=== PATIENT | male | born 1975 | race Caucasian/White ===

== ENCOUNTER 2020-07-25 10:42 | Emergency (ER) | payer OTHER ==
[~2020-07-25] VITALS: Ht 175 cm; Wt 120.0 kg
[2020-07-25] MEDS ORDERED: cloNIDine 0.1 MG (CATAPRES) TAB PO ONE (11:00)
--- NOTE | 2020-07-25 11:10 | ED Cardiac General ---
History of Present Illness General Chief Complaint: Cardiac/General Problems Stated Complaint: HIGH BP Source: patient Exam Limitations: no limitations (LYNDSEY SHELBY) History of Present Illness Date Seen by Provider: Jul 25, 2020 Time Seen by Provider: 10:56 Initial Comments Pt here from [facility] office for high blood pressure. He states he was having some floaters in is eye last night and this morning prompting his visit to the eye doctor. He states the opthalmologist told him there was a bleeding vessel in his left eye and his BP was 205 systolic. He states he has a history of HTN and is prescribed Lisinopril, but he has not taken it for about a month until this morning he took a dose suspecting his eye problem was from the high blood pressure. He reports some eye strain and headache from trying to follow the floater around in his vision. He denies any double vision, blurry vision, chest pain, SOA, abdominal issues, dizziness, numbness or tingling. Timing/Duration: 24 hours Severity: moderate Location: other (Left eye floater) Activities at Onset: none Associated Systoms: No Chest Pain, No Cough, No Fever/Chills, No Nausea/Vomiting, No Shortness of Air, No Syncope, No Weakness (LYNDSEY SHELBY) Allergies and Home Medications Allergies Coded Allergies: No Known Drug Allergies (Unverified , 07/25/20) Patient Home Medication List Home Medication List Reviewed: Yes (KAE BAKER MD) Review of Systems Review of Systems Constitutional: No chills, No fever EENTM: No Blurred Vision, No Double Vision; Eye Pain (Strain); No Nose Congestion, No Throat Pain Respiratory: Denies Cough, Denies Shortness of Air Cardiovascular: Denies Chest Pain, Denies Irregular Heart Rate, Denies Palpitations, Denies Syncope Gastrointestinal: Denies Abdominal Pain, Denies Constipated, Denies Diarrhea, Denies Nausea, Denies Vomiting Genitourinary: Denies Burning, Denies Hematuria Musculoskeletal: No back pain, No muscle weakness Psychiatric/Neurological: Headache; Denies Numbness, Denies Tingling, Denies Weakness (LYNDSEY SHELBY) Respiratory: Denies Cough, Denies SOA at Rest Cardiovascular: Denies Chest Pain, Denies Edema Gastrointestinal: Denies Nausea, Denies Vomiting (KAE BAKER MD) All Other Systems Reviewed Negative Unless Noted: Yes (KAE BAKER MD) Past Ccmmpwn-[id number]-Vivdrw Hx Past Med/Social Hx: Reviewed Nursing Past Med/Soc Hx (KAE BAKER MD) Patient Social History Alcohol Use: Occasionally Uses Recent Hopitalizations: No (LYNDSEY SHELBY) Seasonal Allergies Seasonal Allergies: No (LYNDSEY SHELBY) Past Medical History Surgeries: Yes Appendectomy Respiratory: No Cardiac: Yes Hypertension Neurological: No Genitourinary: No Gastrointestinal: No Musculoskeletal: No Endocrine: No HEENT: No Cancer: No Psychosocial: No Integumentary: No Blood Disorders: No (LYNDSEY SHELBY) Family Medical History Reviewed Nursing Family Hx (KAE BAKER MD) Physical Exam Vital Signs Vital Signs - First Documented 07/25/20 11:00 Temp 37.0 Pulse 90 Resp 18 B/P (MAP) 191/128 (149) Pulse Ox 98 O2 Delivery Room Air (KAE BAKER MD) Vital Signs Capillary Refill : (LYNDSEY SHELBY) Height, Weight, BMI Height: '" Weight: lbs. oz. kg; BMI Method: General Appearance: No Apparent Distress, WD/WN HEENT: PERRL/EOMI (Equal but chemically dilated), TMs Normal, Normal ENT Inspection Neck: Full Range of Motion, Normal Inspection, Supple Respiratory: Chest Non Tender, Lungs Clear, Normal Breath Sounds Cardiovascular: Regular Rate, Rhythm, No Edema, Normal Peripheral Pulses Gastrointestinal: Non Tender, Soft Extremity: Normal Capillary Refill, Normal Inspection, Normal Range of Motion, Non Tender, No Calf Tenderness, No Pedal Edema Neurologic/Psychiatric: Alert, Oriented x3, No Motor/Sensory Deficits, Normal Mood/Affect Skin: Normal Color, Warm/Dry (LYNDSEY SHELBY) General Appearance: No Apparent Distress, WD/WN HEENT: PERRL/EOMI (Equal but chemically dilated), Pharynx Normal Respiratory: Lungs Clear, Normal Breath Sounds Cardiovascular: Regular Rate, Rhythm, No Murmur, Normal Peripheral Pulses Extremity: Normal Range of Motion, Non Tender Neurologic/Psychiatric: Alert, Oriented x3 Skin: Normal Color, Warm/Dry (KAE BAKER MD) Progress/Results/Core Measures Results/Orders Lab Results Laboratory Tests Test 07/25/20 11:05 Range/Units White Blood Count 6.3 4.3-11.0 10^3/uL Red Blood Count 5.74 4.35-5.85 10^6/uL Hemoglobin 15.6 13.3-17.7 G/DL Hematocrit 48 40-54 % Mean Corpuscular Volume 83 80-99 FL Mean Corpuscular Hemoglobin 27 25-34 PG Mean Corpuscular Hemoglobin Concent 33 32-36 G/DL Red Cell Distribution Width 14.1 10.0-14.5 % Platelet Count 242 130-400 10^3/uL Mean Platelet Volume 10.7 H 7.4-10.4 FL Immature Granulocyte % (Auto) 0 % Neutrophils (%) (Auto) 69 42-75 % Lymphocytes (%) (Auto) 21 12-44 % Monocytes (%) (Auto) 7 0-12 % Eosinophils (%) (Auto) 2 0-10 % Basophils (%) (Auto) 1 0-10 % Neutrophils # (Auto) 4.3 1.8-7.8 X 10^3 Lymphocytes # (Auto) 1.3 1.0-4.0 X 10^3 Monocytes # (Auto) 0.5 0.0-1.0 X 10^3 Eosinophils # (Auto) 0.1 0.0-0.3 10^3/uL Basophils # (Auto) 0.1 0.0-0.1 10^3/uL Immature Granulocyte # (Auto) 0.0 0.0-0.1 10^3/uL Sodium Level 138 135-145 MMOL/L Potassium Level 3.6 3.6-5.0 MMOL/L Chloride Level 103 98-107 MMOL/L Carbon Dioxide Level 25 21-32 MMOL/L Anion Gap 10 5-14 MMOL/L Blood Urea Nitrogen 14 7-18 MG/DL Creatinine 1.64 H 0.60-1.30 MG/DL Estimat Glomerular Filtration Rate 46 BUN/Creatinine Ratio 9 Glucose Level 93 70-105 MG/DL Calcium Level 9.3 8.5-10.1 MG/DL Corrected Calcium 8.5-10.1 MG/DL Total Bilirubin 0.6 0.1-1.0 MG/DL Aspartate Amino Transf (AST/SGOT) 20 5-34 U/L Alanine Aminotransferase (ALT/SGPT) 18 0-55 U/L Alkaline Phosphatase 64 40-136 U/L Total Protein 8.0 6.4-8.2 GM/DL Albumin 4.6 H 3.2-4.5 GM/DL (KAE BAKER MD) My Orders Orders - KAE BAKER MD Clonidine Tablet (Catapres Tablet) (07/25/20 11:00) Cbc With Automated Diff (07/25/20 10:58) Comprehensive Metabolic Panel (07/25/20 10:58) Ekg Tracing (07/25/20 10:58) Hydralazine Injection (Apresoline Inject (07/25/20 11:30) Ed Iv/Invasive Line Start (07/25/20 11:29) Metoprolol Succinate (Xl) Tab (Toprol Xl (07/25/20 11:45) Amlodipine Tablet (Norvasc Tablet) (07/25/20 11:45) (KAE BAKER MD) Medications Given in ED Current Medications Medications Dose Ordered Sig/Rowena Route Start Time Stop Time Status Last Admin Dose Admin Amlodipine Besylate 10 mg ONCE ONCE PO 07/25/20 11:45 07/25/20 11:46 DC 07/25/20 11:40 10 MG Clonidine HCl 0.1 mg ONCE ONCE PO 07/25/20 11:00 07/25/20 11:01 DC 07/25/20 10:58 0.1 MG Hydralazine HCl 10 mg ONCE ONCE IV 07/25/20 11:30 07/25/20 11:31 DC 07/25/20 11:33 10 MG (KAE BAKER MD) Vital Signs/I&O 07/25/20 11:00 Temp 37.0 Pulse 90 Resp 18 B/P (MAP) 191/128 (149) Pulse Ox 98 O2 Delivery Room Air (KAE BAKER MD) Progress Progress Note : Progress Note 1100: Pt comfortabl in room blood pressure 215/130 decreased to 191/128 on second check, ordered Clonidine .1 mg PO, CBC, CMP, ECG, will monitor and reassess BP 1125: BP still elevateed at 195/122, will order Hydralazine 10mg IV, (LYNDSEY SHELBY) Progress Note : Progress Note I have seen and evaluated the patient and agree with above except as indicated. I have directed the plan of care. Patient is here with uncontrolled hyperte nsion with history of hypertension. He has been off of his meds for quite some time. Noticed blurry spot in vision and thought that it was likely his blood pressure. He did take one of his like lisinopril tablets this morning and went to the eye doctor. He was found to have a small hemorrhage in the left eye and was instructed to come here due to blood pressure concerns. Denies chest pain, breathing problems, difficulty with urination, balance problems or weakness or other concerns. Evaluation as above. Plan basic labs, EKG and clonidine 0.1 mg p.o. We did go ahead and establish IV and give hydralazine 10 mg IV. 1130: I did discuss the case with Dr. Purcell and he agrees with the plan/far but recommends Toprol-XL 100 mg p.o. and amlodipine 10 mg p.o. when he can see the patient tomorrow in clinic. This was discussed with the patient who agrees. We are pending labs currently and will monitor blood pressure improvement. 1230: Blood pressure currently 143/87 with heart rate of 70. Overall feeling fine but does have a mild headache. He will follow up with Dr. Purcell and discharge instructions discussed. Discharged home with return precautions. Patient verbalized understanding instructions and agreement with plan. (KAE BAKER MD) Initial ECG Impression Date: Jul 25, 2020 Initial ECG Impression Time: 11:10 Initial ECG Rate: 75 Initial ECG Rhythm: Normal Sinus Initial ECG Comparisson: No Previous ECG Available Comment Sinus rhythm with LVH with secondary repolarization abnormality. Normal but leftward axis deviation. No evidence of ST elevation [place]. Interpreted by me. (KAE BAKER MD) Departure Impression Primary Impression: Uncontrolled hypertension Disposition: 01 HOME, SELF-CARE Condition: Stable Departure-Patient Inst. Decision time for Depature: 12:23 (KAE BAKER MD) Referrals: KAYCEE SHEIKH MD FACP FACC [facility]S LETTY JENKINS MD (PCP/Family) Primary Care Physician Patient Instructions: Malignant Hypertension (DC) Add. Discharge Instructions: All discharge instructions reviewed with patient and/or family. Voiced understanding. It is very important that you take your medications for your blood pressure to reduce chance of injury or further disease. Follow-up with Dr. Purcell for recheck and further evaluation. Call his office today for appointment tomorrow. Return for chest pain, breathing problems, weakness, vision or balance problems, nausea, vomiting or other concerns as needed. Scripts Metoprolol Succinate (Metoprolol Succinate) 100 Mg Tab.er.24h 100 MG PO DAILY for 30 Days, #30 TAB Prov: KAE BAKER MD 07/25/20 Amlodipine Besylate (Amlodipine Besylate) 10 Mg Tablet 10 MG PO DAILY for 30 Days, #30 TAB 0 Refills Prov: KAE BAKER MD 07/25/20 Copy Copies To 1: KAYCEE SHEIKH MD FACP FACC CCDS LYNDSEY SHELBY Jul 25, 2020 11:10 KAE BAKER MD Jul 25, 2020 11:53
[2020-07-25] MEDS ORDERED: hydrALAZINE (APESOLINE) 20 MG/ML VIAL IV ONE (11:30)
[2020-07-25 11:37] LABS: BASOPHILS % (AUTO) 1 % (0-10); EOSINOPHILS % (AUTO) 2 % (0-10); HEMATOCRIT 48 % (40-54); HEMOGLOBIN 15.6 G/DL (13.3-17.7); LYMPHOCYTES # (AUTO) 1.3 X 10^3 (1.0-4.0); LYMPHOCYTES % (AUTO) 21 % (12-44); MEAN CORPUSCULAR HEMOGLOBIN 27 PG (25-34); MEAN CORPUSCULAR HGB CONC 33 G/DL (32-36); MEAN CORPUSCULAR VOLUME 83 FL (80-99); MEAN PLATELET VOLUME 10.7 FL (7.4-10.4); MONOCYTES # (AUTO) 0.5 X 10^3 (0.0-1.0); MONOCYTES % (AUTO) 7 % (0-12); NEUTROPHILS # (AUTO) 4.3 X 10^3 (1.8-7.8); NEUTROPHILS % (AUTO) 69 % (42-75); PLATELET COUNT 242 10^3/uL (130-400); WHITE BLOOD COUNT 6.3 10^3/uL (4.3-11.0)
[2020-07-25 11:38] LABS: BASOPHILS # (AUTO) 0.1 10^3/uL (0.0-0.1); EOSINOPHILS # (AUTO) 0.1 10^3/uL (0.0-0.3)
[2020-07-25] MEDS ORDERED: meTOproloL SUCCINATE 50 MG (TOPROL XL) TAB PO SCH (11:45)
[2020-07-25] MEDS ORDERED: amLODIPine 10 MG (NORVASC) TAB PO ONE (11:45)
[2020-07-25 11:50] LABS: ALANINE AMINOTRANSFERASE 18 U/L (0-55); ALBUMIN 4.6 GM/DL (3.2-4.5); ALKALINE PHOSPHATASE 64 U/L (40-136); BILIRUBIN,TOTAL 0.6 MG/DL (0.1-1.0); BUN/CREATININE RATIO 9; CALCIUM 9.3 MG/DL (8.5-10.1); CARBON DIOXIDE 25 MMOL/L (21-32); CHLORIDE 103 MMOL/L (98-107); CREATININE SERUM 1.64 MG/DL (0.60-1.30); GFR ESTIMATED 46; GLUCOSE 93 MG/DL (70-105); POTASSIUM 3.6 MMOL/L (3.6-5.0); SODIUM 138 MMOL/L (135-145)
[2020-07-25] MEDS ORDERED: MTP100TCR PO (12:27)
[2020-07-25] MEDS ORDERED: AMLO-251 PO (12:27)
[2020-07-25 12:39] VITALS: BP 143/87
== END 2020-07-25 12:38 | disposition home or self-care (01) ==
LOC: EDUNIT# 10:42 → ER FS 10:45
DX: I10 Essential (primary) hypertension (principal)
CPT/HCPCS: 36415; 80053; 85025; 93005

== ENCOUNTER → 2021-07-27 | Outpatient (CLI) | payer OTHER ==
[~2021-07-27] MED LIST: AMLO-251 PO; MTP100TCR PO
== END ==
LOC: LAB FS 11:15
PROVIDERS: ATTEND Emergency Medicine
DX: U07.1 COVID-19 (principal)
CPT/HCPCS: 87636

== ENCOUNTER 2022-07-01 06:32 | Observation (INO) | payer OTHER ==
[~2022-07-01] VITALS: Ht 175.2 cm; Wt 113.6 kg
[2022-07-01] MEDS ORDERED: hydrALAZINE (APESOLINE) 20 MG/ML VIAL IV STA (06:50)
[2022-07-01] MEDS ORDERED: RT-ALBUTEROL/IPRATROPIUM 3 ML (DUONEB) VIAL INH STA (06:50)
--- NOTE | 2022-07-01 06:50 | ED Dyspnea ---
General Stated Complaint: SOB,COUGHING UP BLOOD Source of Information: Patient Exam Limitations: No Limitations (LEANNA PICKARD MD) History of Present Illness Date Seen by Provider: Jul 01, 2022 Time Seen by Provider: 06:38 Initial Comments 46-year-old male with history of high blood pressure and obesity presents with complaints of waking up 2 hours ago with shortness of breath. He was and coughed up some dark red sputum. He has continued to cough since then and felt that there was still some blood present with coughing. He denies having fever or feeling sick until he woke up this morning. He takes lisinopril and metoprolol for his blood pressure but then also has as needed clonidine to take for elevated blood pressure. He has had some nasal drainage but said that it was all clear. He feels short of breath and was concerned about the blood in his sputum. He does have a history of tobacco use but states that he recently quit smoking again. He does have a mild headache with the coughing and high blood pressure. He states he took his blood pressure medicine before leaving home. He felt well when he went to bed last night but again woke up at approximately 4:30 in the morning with his symptoms today. Timing/Duration: 1-3 Hours Severity: Moderate Activities at Onset: Sleeping Prior Episodes/Possible Cause: No Prior Episodes Modifying Factors: Worse With Coughing (Sees some pink-tinged sputum when he coughs) Associated Symptoms: Anxiety, Cough (LEANNA PICKARD MD) Allergies and Home Medications Allergies Coded Allergies: No Known Drug Allergies (Unverified , 07/25/20) Patient Home Medication List Home Medication List Reviewed: Yes (LEANNA PICKARD MD) Amlodipine Besylate (Amlodipine Besylate) 10 Mg Tablet, 10 MG PO DAILY Prescribed by: KAE BAKER on 07/25/20 1227 Metoprolol Succinate (Metoprolol Succinate) 100 Mg Tab.er.24h, 100 MG PO DAILY Prescribed by: KAE BAKER on 07/25/20 1227 Review of Systems Review of Systems Constitutional: No chills, No fever EENTM: nose congestion; No epistaxis Respiratory: cough, hemoptysis, short of breath Cardiovascular: No chest pain Gastrointestinal: No nausea, No vomiting Genitourinary: no symptoms reported Musculoskeletal: no symptoms reported Skin: no symptoms reported Psychiatric/Neurological: Headache Endocrine: No Symptoms Reported Hematologic/Lymphatic: Denies Blood Clots (LEANNA PICKARD MD) Past Nwurmdk-Zoznmd-Lwzbqc Hx Patient Social History Tobacco Use?: Yes Tobacco type used: Cigarettes Smoking Status: Former Smoker (quit 2 weeks ago) (LEANNA PICKARD MD) Seasonal Allergies Seasonal Allergies: No (LEANNA PICKARD MD) Past Medical History Surgery/Hospitalization HX: Hypertension, Non-compliance Surgeries: Yes Appendectomy Respiratory: No Cardiac: Yes Hypertension Neurological: No Genitourinary: No Gastrointestinal: No Musculoskeletal: No Endocrine: No HEENT: No Cancer: No Psychosocial: No Integumentary: No Blood Disorders: No (LEANNA PICKARD MD) Physical Exam Vital Signs Vital Signs - First Documented 07/01/22 06:32 Temp 36.5 Pulse 86 Resp 22 B/P (MAP) 238/134 (168) Pulse Ox 92 O2 Delivery Room Air (KASI JOSEPH MD) Vital Signs Capillary Refill : (LEANNA PICKARD MD) Height, Weight, BMI Height: '" Weight: lbs. oz. kg; 39.00 BMI Method: General Appearance: Anxious HEENT: PERRL/EOMI, Moist Mucous Membranes; No Photophobia; Other (TM clear bilaterally but he does have bilateral effusion. There is no erythema or dul lness. 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 II-XII Norm as Tested Skin: Normal Color, Warm/Dry (LEANNA PICKARD MD) Progress/Results/Core Measures Results/Orders Lab Results Laboratory Tests Test 07/01/22 06:40 07/01/22 06:45 Range/Units White Blood Count 8.5 4.3-11.0 10^3/uL Red Blood Count 6.13 H 4.30-5.52 10^6/uL Hemoglobin 17.6 13.3-17.7 g/dL Hematocrit 51 40-54 % Mean Corpuscular Volume 83 80-99 fL Mean Corpuscular Hemoglobin 29 25-34 pg Mean Corpuscular Hemoglobin Concent 35 32-36 g/dL Red Cell Distribution Width 13.8 10.0-14.5 % Platelet Count 228 130-400 10^3/uL Mean Platelet Volume 11.0 9.0-12.2 fL Immature Granulocyte % (Auto) 1 % Neutrophils (%) (Auto) 60 42-75 % Lymphocytes (%) (Auto) 24 12-44 % Monocytes (%) (Auto) 7 0-12 % Eosinophils (%) (Auto) 6 0-10 % Basophils (%) (Auto) 1 0-10 % Neutrophils # (Auto) 5.1 1.8-7.8 10^3/uL Lymphocytes # (Auto) 2.1 1.0-4.0 10^3/uL Monocytes # (Auto) 0.6 0.0-1.0 10^3/uL Eosinophils # (Auto) 0.5 H 0.0-0.3 10^3/uL Basophils # (Auto) 0.1 0.0-0.1 10^3/uL Immature Granulocyte # (Auto) 0.0 0.0-0.1 10^3/uL Prothrombin Time 12.7 12.2-14.7 SEC INR Comment 0.9 0.8-1.4 Activated Partial Thromboplast Time 30 24-35 SEC D-Dimer 0.56 H 0.00-0.49 UG/ML Sodium Level 139 135-145 MMOL/L Potassium Level 4.2 3.6-5.0 MMOL/L Chloride Level 104 98-107 MMOL/L Carbon Dioxide Level 23 21-32 MMOL/L Anion Gap 12 5-14 MMOL/L Blood Urea Nitrogen 22 H 7-18 MG/DL Creatinine 1.83 H 0.60-1.30 MG/DL Estimat Glomerular Filtration Rate 46 BUN/Creatinine Ratio 12 Glucose Level 116 H 70-105 MG/DL Calcium Level 9.2 8.5-10.1 MG/DL Corrected Calcium 9.0 8.5-10.1 MG/DL Magnesium Level 2.0 1.6-2.4 MG/DL Total Bilirubin 1.0 0.1-1.0 MG/DL Aspartate Amino Transf (AST/SGOT) 22 5-34 U/L Alanine Aminotransferase (ALT/SGPT) 21 0-55 U/L Alkaline Phosphatase 57 40-136 U/L Troponin I < 0.30 <0.30 NG/ML C-Reactive Protein 0.39 <0.50 MG/DL Pro-B-Type Natriuretic Peptide 1301.0 H <125.0 PG/ML Total Protein 7.6 6.4-8.2 GM/DL Albumin 4.2 3.2-4.5 GM/DL Influenza Type A (RT-PCR) Not Detected Not Detecte Influenza Type B (RT-PCR) Not Detected Not Detecte SARS-CoV-2 RNA (RT-PCR) Not Detected Not Detecte (KASI JOSEPH MD) My Orders Orders - KASI JOSEPH MD Crp Fs (07/01/22 07:54) Furosemide Injection (Lasix Injection) (07/01/22 08:00) Potassium Chloride (Tablet) (Klor Con Ta (07/01/22 08:00) Ns Iv 500 Ml (Sodium Chloride 0.9%) (07/01/22 08:00) Ct Angio Chest W (07/01/22 07:55) Iohexol Injection (Omnipaque 350 Mg/Ml 1 (07/01/22 08:00) Received Contrast (Hold Metformin- Contr (07/01/22 08:00) Sodium Chloride Flush (Catheter Flush Sy (07/01/22 08:00) Ns (Ivpb) (Sodium Chloride 0.9% Ivpb Bag (07/01/22 08:00) Hydralazine Injection (Apresoline Inject (07/01/22 09:15) Amlodipine Tablet (Norvasc Tablet) (07/01/22 09:30) Metoprolol Succinate (Xl) Tab (Toprol Xl (07/01/22 09:26) Oxycodone Immediate Rel Tablet (Oxyir Ta (07/01/22 10:00) Fentanyl Inj (Sublimaze Injection) (07/01/22 10:30) (KASI JOSEPH MD) Medications Given in ED Current Medications Medications Dose Ordered Sig/Rowena Route Start Time Stop Time Status Last Admin Dose Admin Amlodipine Besylate 10 mg ONCE ONCE PO 07/01/22 09:30 07/01/22 09:31 DC 07/01/22 09:42 10 MG Fentanyl Citrate 50 mcg ONCE ONCE IVP 07/01/22 10:30 07/01/22 10:31 DC 07/01/22 10:28 50 MCG Furosemide 20 mg ONCE ONCE IVP 07/01/22 08:00 07/01/22 08:01 DC 07/01/22 08:05 20 MG Hydralazine HCl 10 mg ONCE ONCE IV 07/01/22 09:15 07/01/22 09:27 DC 07/01/22 09:15 10 MG Iohexol 100 ml ONCE ONCE IV 07/01/22 08:00 07/01/22 08:10 DC 07/01/22 08:20 100 ML Potassium Chloride 20 meq ONCE ONCE PO 07/01/22 08:00 07/01/22 08:01 DC 07/01/22 08:07 20 MEQ Sodium Chloride 10 ml NEEDED PRN IV 07/01/22 08:00 07/01/22 08:20 10 ML Sodium Chloride 100 ml ONCE ONCE IV 07/01/22 08:00 07/01/22 08:10 DC 07/01/22 08:20 100 ML Sodium Chloride 500 ml @ 0 mls/hr Q0M ONCE IV 07/01/22 08:00 07/01/22 08:01 DC 07/01/22 08:34 0 MLS/HR (KASI JOSEPH MD) Vital Signs/I&O 07/01/22 07/01/22 06:32 09:45 Temp 36.5 36.5 Pulse 86 76 Resp 22 18 B/P (MAP) 238/134 (168) 161/119 Pulse Ox 92 96 O2 Delivery Room Air Room Air (KASI JOSEPH MD) Admisison Planning May Need Admission (Planning): 06:45 (LEANNA PICKARD MD) Progress Progress Note #1: Progress Note Potential life-threatening conditions of pulmonary embolism, pneumonia, COVID, sepsis, influenza, pulmonary mass, arterial hemorrhage in his lungs. Evaluate with electrocardiogram to evaluate for arrhythmia or ischemia, chest x- ray to look for infection, effusion, mass, cardiomegaly, CBC, chemistry, coags, cardiac enzymes, swab for COVID, swab for influenza, D-dimer to screen for pulmonary embolism, sputum culture to see the blood in his expectorated sputum. Ordered DuoNeb breathing treatment nebulized to help with his shortness of breath and his oxygen saturation of 91 to 92% on room air. Ordered hydralazine 10 mg IV for his hypertension. His initial blood pressure was 237/139. As he appears to have an upper respiratory infection with some drainage and fluid behind his ears that could be contributing to the cough. With him coughing hard and having recently quit smoking the last few weeks he could also have infection or pulmonary mass or blood clot. With his highly elevated blood pressure that could also contribute to his coughing up some blood. Since his blood pressure is so elevated it would make it easier for him to have some bleeding from his increased pressure on the small blood vessels. He denies taking any blood thinners or aspirin. He is inconsistent with taking his blood pressure medicine. He does report taking his blood pressure medicine this morning approximately 1 hour prior to arrival. He denies having a history of COPD but does have a longstanding history of smoking. If his blood pressure is not improving with hydralazine he might require additional doses or labetalol or other treatment to help lower his pressures. He might benefit from steroid such as solumedrol 125 mg IV since he has a history of smoking and only quit 2 weeks ago. He [facility] had a [facility] [place] for a conference so this increases his chance for having Covid, Influenza, Pulmonary embolism, pneumonia. Will pass care to Dr. Joseph at shift change pending results and seeing how he responds to treatment in the ED to determine his disposition. He certainly may require admit to the hospital for his uncontrolled hypert ension, hemoptysis, cough, headache, shortness of breath with O2 sat 90-92% on room air. Progress Note #2: Time: 07:24 Progress Note On my personal interpretation and review of his electrocardiogram shows normal sinus rhythm with LVH changes. This appears similar to July 25, 2020. His cardiac telemetry monitoring is showing a sinus rhythm with heart rate in the 80s with out ectopy or ST elevation. On my personal interpretation and review of his 1 view chest x-ray he has poor inspiratory effort with possible infiltrate in the right lower lobe. He appears to have a widened mediastinum. However this may just be secondary to his poor inspiratory effort and body habitus. Also looks like he has a higher density area behind his heart that could be hiatal hernia. After the hydralazine is blood pressure was still 221/137. After the DuoNeb breathing treatment he was slightly less short of breath but his oxygen saturation on room air still was 90 to 92%. (LEANNA PICKARD MD) Progress Note #1: Time: 07:49 Progress Note Care of this patient was assumed from Dr. Pickard at shift change. Patient feels a little improved after nebulizer treatment but still feels short of breath. He has short shallow respirations and less instructed to take a deep breath. He does have some subtle crackles bilaterally throughout the lungs. Chest x-ray was viewed by me and report reviewed. There is evidence of infiltrate, cardiome karly, and vascular congestion. BNP correlates with the vascular congestion from probable heart failure. I will add a CRP to help discern if there is an infectious etiology. Chemistry was reviewed and revealed a worsening of his renal insufficiency. Along with Lasix we will also give a 500 mL normal saline bolus for renal protection as he is receiving a CT angiogram to further evaluate his chest pain and hemoptysis. D-dimer was slightly elevated. Patient denies any chest pain except with cough. No leukocytosis was noted on the CBC. Patient is afebrile at this time. Progress Note #2: Time: 09:[address] angiogram did not reveal any pulmonary embolus. There was groundglass opacity suggestive of pulmonary edema. There was mention of possible alveolar hemorrhage, but I believe this is unlikely since there is no pathology or diagnosis that should cause hemorrhage. No hemoptysis has been witnessed here and he has not complained of any hemoptysis since presenting to the ER. Vital signs are improved with last systolic blood pressure of 178. This is a satisfactory reduction from his presenting blood pressure. Case was discussed with Dr. Myers who is agreeable to admission to the cardiac stepdown unit. Dr. Calvin was consulted. He recommended adding amlodipine 10 mg now and daily and Toprol-XL 100 mg now and daily. Patient had prompt diuresis with Lasix 20 mg by IV route. This was followed by normal saline 500 mL IV bolus for renal prophylaxis after his CT angiogram. Patient will be transferred by EMS to [facility]. Patient was placed on oxygen at 2 L/min for comfort. Oxygen saturations prior to nasal cannula were running 92 to 95%. Progress Note #3: Time: 10:44 Progress Note Upon further review of literature, it seems that in some rare instances alveolar hemorrhage has been noted with hypertensive emergency. I have discussed the situation with the eICU provider. Since the patient is no longer short of breath and has had no hemoptysis in the emergency room, admission to the ICU is not felt necessary. Blood pressure is controlled with systolic pressure of 181 on my evaluation prior to departure in route to [place]. This represents a 20 to 25% drop from initial which is appropriate for initial treatment. Patient did receive the amlodipine and Toprol-XL as requested by Dr. Calvin. Patient was noted to diurese nearly 2 L prior to discharge and transfer. (KASI JOSEPH MD) Initial ECG Impression Date: Jul 01, 2022 Initial ECG Impression Time: 06:45 Initial ECG Rate: 81 Initial ECG Rhythm: Normal Sinus Initial ECG Comparisson: Unchanged Comment On my personal review and interpretation of his electrocardiogram shows sinus rhythm with a heart rate of 81 bpm. KS interval 162 ms. He has LVH changes. QT interval 369 ms with a QTc interval 406 ms. This is similar to prior tracing from July 25, 2020 (LEANNA PICKARD MD) Diagnostic Imaging Diagonstic Imaging: Xray Plain Films/CT/US/NM/MRI: chest (LEANNA PICKARD MD) Comments Chest x-ray viewed by me. There appears to be infiltrate in the right lung base and cardiomegaly with probable vascular congestion by my interpretation. Radiologist interpretation also reviewed as noted in report below. NAME: [facility] REC#: [id number] PT STATUS: REG ER : 1975 PHYSICIAN: LEANNA PICKARD MD ADMIT DATE: 07/01/22/ER FS Draft Date of Exam:07/01/22 CHEST 1 VIEW AP/PA ONLY INDICATION: Cough, hemoptysis. Covid precautions. EXAMINATION: Chest 07/01/2022. FINDINGS: Heart is prominent with mild pulmonary vascular congestion noted. There are suspected bibasilar infiltrates. No significant effusions. No pneumothorax. IMPRESSION: 1. Pulmonary vascular congestion. 2. Suspected bibasilar infiltrates. Dictated on workstation # [id number] Dict: 07/01/22 0739 Trans: 07/01/22 0744 [id number] Interpreted by: JESSICA CARRION MD Diagonstic Imaging: CT Plain Films/CT/US/NM/MRI: chest Comments CT angiogram chest reviewed by me and report reviewed as below. See report: NAME: B[facility] MACK [facility] REC#: [id number] PT STATUS: REG ER : 1975 PHYSICIAN: KASI JOSEPH MD ADMIT DATE: 07/01/22/ER FS Draft Date of Exam:07/01/22 CT ANGIO CHEST W EXAMINATION: CT angiography of the chest. TECHNIQUE: Contrast enhanced thin section helical images were obtained through the chest with intravenous contrast timed for the optimal opacification of the arterial structures per CTA protocol. Post-processing, reconstructions and interpretation of angiographic images of the vessels was performed. 3D MIP reconstructions were performed and reviewed. All CT scans use one or more of the following dose optimizing techniques: automated exposure control, MA and/or KvP adjustment based on a patient size and exam type, or iterative reconstruction. HISTORY: Elevated D-dimer and hemoptysis. COMPARISON: None available. FINDINGS: There is no pulmonary embolism. There is centrilobular groundglass and nodularity in both lungs with septal line thickening. No consolidation. No pleural effusion. No pneumothorax. There is no axillary or supraclavicular lymphadenopathy. There is no mediastinal lymphadenopathy. The left ventricle is enlarged. There are no coronary artery calcifications. No pericardial effusion. Aorta is normal in caliber. Limited views of the upper abdomen are unremarkable. There are no suspicious osseous lesions. IMPRESSION: 1. Centrilobular groundglass and nodularity with septal line thickening. In the setting of hemoptysis, this is favored to represent diffuse alveolar hemorrhage. The differential is pulmonary edema. Dictated on workstation # [id number] Dict: 07/01/22 0833 Trans: 07/01/22 0838 [id number] Interpreted by: BETH KRUSE MD (KASI JOSEPH MD) Transfer of Care Time: 07:00 Care transferred to: Dr. Joseph (LEANNA PICKARD MD) Departure Communication (Admissions) Time/Spoke to Admitting Phy: 09:10 Dr. Myers Time/Spoke to Consulting Phy: 09:25 Dr. Calvin (KASI JOSEPH MD) Impression Primary Impression: Cough with hemoptysis Additional Impressions: Uncontrolled hypertension Dyspnea Qualified Codes: R06.02 - Shortness of breath Person under investigation for COVID-19 Crlbc-ab-rkmdptw kidney injury Qualified Codes: N17.9 - Acute kidney failure, unspecified; N18.9 - Chronic kidney disease, unspecified Congestive heart failure Qualified Codes: I50.9 - Heart failure, unspecified Disposition: 30 STILL A PATIENT Condition: Stable Admissions Decision to Admit Reason: Admit from ER (General) Decision to Admit/Date: Jul 01, 2022 Time/Decision to Admit Time: 09:10 (KASI JOSEPH MD) Transfer Transfer Reason: Exceeds level of care Time Spoke to Accepting Phy: 09:10 Transfer Progress Notes Transfer accepted by Dr. Myers to [facility] [place], [facility] Transfer Time: 10:30 Transfer Facility: [facility] [place] Method of Transfer: EMS (KASI JOSEPH MD) Departure-Patient Inst. Referrals: LETTY JENKINS MD (PCP/Family) Primary Care Physician Copy Copies To 1: LETTY JENKINS MD, MARC E MD Jul 01, 2022 06:50 KAIS JOSEPH MD Jul 01, 2022 07:53
[2022-07-01 07:12] LABS: BASOPHILS # (AUTO) 0.1 10^3/uL (0.0-0.1); BASOPHILS % (AUTO) 1 % (0-10); EOSINOPHILS # (AUTO) 0.5 10^3/uL (0.0-0.3); EOSINOPHILS % (AUTO) 6 % (0-10); HEMATOCRIT 51 % (40-54); HEMOGLOBIN 17.6 g/dL (13.3-17.7); LYMPHOCYTES # (AUTO) 2.1 10^3/uL (1.0-4.0); LYMPHOCYTES % (AUTO) 24 % (12-44); MEAN CORPUSCULAR HEMOGLOBIN 29 pg (25-34); MEAN CORPUSCULAR HGB CONC 35 g/dL (32-36); MEAN CORPUSCULAR VOLUME 83 fL (80-99); MONOCYTES # (AUTO) 0.6 10^3/uL (0.0-1.0); MONOCYTES % (AUTO) 7 % (0-12); NEUTROPHILS # (AUTO) 5.1 10^3/uL (1.8-7.8); NEUTROPHILS % (AUTO) 60 % (42-75); PLATELET COUNT 228 10^3/uL (130-400); WHITE BLOOD COUNT 8.5 10^3/uL (4.3-11.0)
[2022-07-01 07:28] LABS: POTASSIUM 4.2 MMOL/L (3.6-5.0)
[2022-07-01 07:31] LABS: CREATININE SERUM 1.83 MG/DL (0.60-1.30)
[2022-07-01 07:32] LABS: ALBUMIN 4.2 GM/DL (3.2-4.5); CALCIUM 9.2 MG/DL (8.5-10.1); TOTAL PROTEIN 7.6 GM/DL (6.4-8.2)
[2022-07-01 07:34] LABS: FIBRIN DEGRADATION PRODUCTS 0.56 UG/ML (0.00-0.49); INR 0.9 (0.8-1.4); PROTHROMBIN TIME PATIENT 12.7 SEC (12.2-14.7)
--- NOTE | 2022-07-01 07:45 | Diagnostic Imaging Report ---
INDICATION: Cough, hemoptysis. Covid precautions. EXAMINATION: Chest 07/01/2022. FINDINGS: Heart is prominent with mild pulmonary vascular congestion noted. There are suspected bibasilar infiltrates. No significant effusions. No pneumothorax. IMPRESSION: 1. Pulmonary vascular congestion. 2. Suspected bibasilar infiltrates. Dictated by: Dictated on workstation # [id number]
[2022-07-01] MEDS ORDERED: KCL 10 MEQ TAB (MICRO K) PO ONE (08:00)
[2022-07-01] MEDS ORDERED: HOLD METFORMIN - RECEIVED CONTRAST 20 ML VIAL IV SCH (08:00)
[2022-07-01] MEDS ORDERED: IOHEXOL 350 MG/ML 100 ML (OMNIPAQUE 350) VIAL IV ONE (08:00)
[2022-07-01] MEDS ORDERED: CATHETER FLUSH 10 ML SYR IV PRN ×2 (08:00→12:00)
[2022-07-01] MEDS ORDERED: FUROSEMIDE 40 MG/4 ML INJ (LASIX) IVP ONE (08:00)
[2022-07-01] MEDS ORDERED: NS IV 500 ML 500 ML IV ONE (08:00)
[2022-07-01] MEDS ORDERED: NS 100 ML (IVPB) BAG IV ONE (08:00)
--- NOTE | 2022-07-01 08:39 | Diagnostic Imaging Report ---
EXAMINATION: CT angiography of the chest. TECHNIQUE: Contrast enhanced thin section helical images were obtained through the chest with intravenous contrast timed for the optimal opacification of the arterial structures per CTA protocol. Post-processing, reconstructions and interpretation of angiographic images of the vessels was performed. 3D MIP reconstructions were performed and reviewed. All CT scans use one or more of the following dose optimizing techniques: automated exposure control, MA and/or KvP adjustment based on a patient size and exam type, or iterative reconstruction. HISTORY: Elevated D-dimer and hemoptysis. COMPARISON: None available. FINDINGS: There is no pulmonary embolism. There is centrilobular groundglass and nodularity in both lungs with septal line thickening. No consolidation. No pleural effusion. No pneumothorax. There is no axillary or supraclavicular lymphadenopathy. There is no mediastinal lymphadenopathy. The left ventricle is enlarged. There are no coronary artery calcifications. No pericardial effusion. Aorta is normal in caliber. Limited views of the upper abdomen are unremarkable. There are no suspicious osseous lesions. IMPRESSION: 1. Centrilobular groundglass and nodularity with septal line thickening. In the setting of hemoptysis, this is favored to represent diffuse alveolar hemorrhage. The differential is pulmonary edema. Dictated by: Dictated on workstation # [id number]
[2022-07-01] MEDS ORDERED: hydrALAZINE (APESOLINE) 20 MG/ML VIAL IV ONE (09:15)
[2022-07-01] MEDS ORDERED: meTOproloL SUCCINATE 50 MG (TOPROL XL) TAB PO STA (09:26)
[2022-07-01] MEDS ORDERED: amLODIPine 10 MG (NORVASC) TAB PO ONE (09:30)
[2022-07-01] MEDS ORDERED: fentaNYL INJ 100 MCG/2 ML AMP IVP ONE (10:30)
--- NOTE | 2022-07-01 11:31 | Tele-ICU Consult ---
History of Present Illness History of Present Illness Date Seen by Provider: Jul 01, 2022 Time Seen by Provider: 11:27 History of Present Illness (Tele-ICU Physician , consultation as per request of PCP Service provided via interactive audio and video telecommunications E-CARE system to a patient admitted to ICU bed in [facility]. Available chart/ vitals / labs / Images reviewed H&P is from ER notes cc SOB, hemoptysis 46 yo M with SOB, went to local ED found to have BP 220/130, given IV Hydralazine, po amlodipine, metorpolol Now SBP 160-170 Also had episode of dark red blood, CXR showed mild congestion, left main bronchus is elevated suggesting LA enlargement Hb 17.6, Cr 1.83 Allergies and Home Medications Allergies Coded Allergies: No Known Drug Allergies (Unverified , 07/25/20) Home Medications Amlodipine Besylate 10 Mg Tablet, 10 MG PO DAILY Prescribed by: KAE BAKER on 07/25/20 1227 Metoprolol Succinate 100 Mg Tab.er.24h, 100 MG PO DAILY Prescribed by: KAE BAKER on 07/25/20 1227 Past Medical/Social/Family Hx Patient Social History Tobacco Use?: Yes Tobacco type used: Cigarettes Smoking Status: Former Smoker (quit 2 weeks ago) Substance use?: No Alcohol Use?: No Pt stated abuse/neglect: No Current Status Advance Directives: No Communicates: Verbally Primary Language: Mauritanian Preferred Spoken Language: Mauritanian Is interpretation needed?: No Review of Systems Constitutional: see HPI Respiratory: see HPI Genitourinary: see HPI Focused Exam Height, Weight, BMI Height: '" Weight: lbs. oz. kg; 36.00 BMI Method: Exam Exam Patient acknowledged, consented, and participated in this virtual visit which was conducted using real time audio/video Vital Signs Date Time Temp Pulse Resp B/P (MAP) Pulse Ox O2 Delivery O2 Flow Rate FiO2 07/01/22 09:45 36.5 76 18 161/119 96 Room Air 07/01/22 06:32 36.5 86 22 238/134 (168) 92 Room Air Height & Weight Height: '" Weight: lbs. oz. kg; 36.00 BMI Method: General Appearance: No Apparent Distress, Anxious HEENT: PERRL/EOMI, Moist Mucous Membranes; No Photophobia; Other (TM clear bilaterally but he does have bilateral effusion. There is no erythema or dullness. He has erythema to the posterior pharynx but no exudate.) Neck: Full Range of Motion, Normal Inspection, Non Tender, Supple Respiratory: Chest Non Tender, Lungs Clear, No Accessory Muscle Use, No Respira tory Distress, Decreased Breath Sounds, Other (no further hemoptysis) Cardiovascular: Regular Rate, Rhythm, No Murmur, Normal Peripheral Pulses Capillary Refill: Less Than 3 Seconds Gastrointestinal: normal bowel sounds, non tender, soft Extremity: Normal Capillary Refill, Normal Inspection, No Pedal Edema Neurologic/Psychiatric: Alert, Oriented x3, staff assistant II-XII Norm as Tested Skin: Normal Color, Warm/Dry Results Lab Laboratory Tests 07/01/22 06:40 Assessment/Plan Assessment/Plan Hypertensive crisis, BP better, I suspect blood may have been from mild cardiac decompensation will continue on present BP meds. Critical Care: Critically Ill Patient Time spent with patient (mins): 20 GERDA URIAS MD Jul 01, 2022 11:31
--- NOTE | 2022-07-01 13:16 | Consultation-Cardiology ---
HPI-Cardiology Cardiology Consultation: Date of Consultation 07/01/22 Time Seen by a Provider: 13:10 Date of Admission 07-01-22 Attending Physician Gualberto Masterson MD Admitting Physician Admitting Physician: Alecia Myers MD Attending Physician: Alecia Myers MD Consulting Physician Navdeep Calvin MD HPI: Chief Complaint: Uncontrolled HTN Mr. Mack is a 46 yr old male admitted to ICU 3 from the [facility] ED with uncontrolled hypertension and hemoptysis. He denies any fever or chills. He reports he did not sleep well last night and was up frequently throughout the night. He states he noted increasing SOB around 1:00 this morning when he woke up. He reports he felt he had congestion in his lungs. He reports he began to cough and coughed up a dark red clot x1. He states he continued to cough, but noted the sputum to be frothy with pink tinge. He reports d/t continued coughing and increasing SOB he came to the ED. He reports no further hemoptysis at this time. He denies any c/o CP, palpitations, syncope or near syncope. He denies any LE swelling. He reports he takes Lisinopril and Metoprolol at home for high blood pressure. He does not monitor it at home. His PCP is Dr. Masterson. He reports fatigue at this time. Review of Systems-Cardiology Review of Systems Constitutional: No chills, No fever; malaise Eyes: No vision change Ears/Nose/Throat: No epistaxis, No recent hearing loss Respiratory: As described under HPI Cardiovascular: As described under HPI Gastrointestinal: As described under HPI Genitourinary: No dysuria, No hematuria Musculoskeletal: no symptoms reported Skin: No rash on exposed areas, No ulcerations on exposed areas Psychiatric/Neurological: No anxiety, No depression, No seizure, No focal wea kness, No syncope Hematologic: No bleeding abnormalities RSI-Qalrnv-Tlyjie Hx Patient Social History Smoking Status: Former Smoker (quit 2 weeks ago) Have you traveled recently?: No Alcohol Use?: No Pt feels they are or have been: No Tobacco type used: Cigarettes Past Medical History PMH As described under Assessment. Family Medical History Family Medical History: He denies any known family h/o CAD. Allergies and Home Medications Allergies Coded Allergies: No Known Drug Allergies (Unverified , 07/25/20) Patient Home Medication List Lisinopril (Lisinopril) 10 Mg Tablet, 10 MG PO BID, (Reported) Entered as Reported by: NICO THOMSON on 07/01/221533 Last Action: Reviewed Metoprolol Succinate (Metoprolol Succinate) 100 Mg Tab.er.24h, 100 MG PO HS, (Reported) Entered as Reported by: NICO THOMSON on 07/01/221533 Last Action: Reviewed Discontinued Medications Amlodipine Besylate (Amlodipine Besylate) 10 Mg Tablet, 10 MG PO DAILY Discontinued Reason: No Longer Taking Prescribed by: KAE BAKER on 07/25/201226 Last Action: Discontinued Metoprolol Succinate (Metoprolol Succinate) 100 Mg Tab.er.24h, 100 MG PO DAILY Discontinued Reason: No Longer Taking Prescribed by: KAE BAKER on 07/25/201226 Last Action: Discontinued Physical Exam-Cardiology Physical Exam Vital Signs/I&O 07/01/22 07/01/22 07/01/22 07/02/22 22:00 23:00 23:54 00:00 Temp 36.3 Pulse 58 56 58 Resp 17 17 11 B/P (MAP) 123/68 (86) 138/88 (105) Pulse Ox 91 90 93 O2 Delivery Room Air Room Air 07/02/22 07/02/22 07/02/22 07/02/22 01:00 02:00 02:00 04:00 Pulse 56 54 54 48 Resp 14 14 14 B/P (MAP) 141/89 (106) 141/89 (106) 151/90 (110) Pulse Ox 91 91 92 O2 Delivery Room Air 07/02/22 07/02/22 07/02/22 07/02/22 04:11 07:00 08:00 08:00 Temp 36.4 36.5 Pulse 52 55 Resp 16 B/P (MAP) 156/95 (115) Pulse Ox 95 O2 Delivery Room Air Room Air 07/02/22 00:00 Intake Total 315 ml Output Total 1025 ml Balance -710 ml Capillary Refill : Less Than 3 Seconds Constitutional: AAO x 3, well-developed, well-nourished HEENT: PERRL, hearing is well preserved, oral hygience is good Neck: No carotid bruit; carotid pulses are 2 + bilaterally Respiratory: No accessory muscle use, No respiratory distress; chest expansion is symmetric, chest is bilaterally symmetric, other (dminished lower lobes) Cardiovascular: regular rate-rhythm; No JVD; S1 and S2 Gastrointestinal: No tender; soft, round, audible bowel sounds Extremities: no lower extremity edema bilateral Neurologic/Psychiatric: grossly intact (moves all extremities) Skin: No rash on exposed areas, No ulcerations on exposed areas Data Review Labs Laboratory Tests 07/01/22 15:02: Mean Blood Glucose 100, Hemoglobin A1c 5.1 07/02/22 05:14: White Blood Count 7.6, Red Blood Count 5.55H, Hemoglobin 15.7, Hematocrit 47, Mean Corpuscular Volume 84, Mean Corpuscular Hemoglobin 28, Mean Corpuscular Hemoglobin Concent 34, Red Cell Distribution Width 13.5, Platelet Count 194, Mean Platelet Volume 10.8, Sodium Level 139, Potassium Level 3.9, Chloride Level 106, Carbon Dioxide Level 20L, Anion Gap 13, Blood Urea Nitrogen 29H, Creatinine 2.13H, Estimat Glomerular Filtration Rate 38, BUN/Creatinine Ratio 14, Glucose Level 99, Calcium Level 8.9, Magnesium Level 2.2, Triglycerides Level 106, Cholesterol Level 213H, LDL Cholesterol Direct 149H, VLDL Cholesterol 21, HDL Cholesterol 49 Radiology NAME: BETH MACK [facility] REC#: [id number] PT STATUS: REG ER : 1975 PHYSICIAN: LEANNA PICKARD MD ADMIT DATE: 07/01/22/ER FS Signed Date of Exam:07/01/22 CHEST 1 VIEW AP/PA ONLY INDICATION: Cough, hemoptysis. Covid precautions. EXAMINATION: Chest 07/01/2022. FINDINGS: Heart is prominent with mild pulmonary vascular congestion noted. There are suspected bibasilar infiltrates. No significant effusions. No pneumothorax. IMPRESSION: 1. Pulmonary vascular congestion. 2. Suspected bibasilar infiltrates. Dictated by: Dictated on workstation # [id number] Dict: 07/01/22 0739 Trans: 07/01/22 1017 SA [id number] Interpreted by: JESSICA CARRION MD Electronically signed by: JESSICA CARRION MD 07/01/22 1017 NAME: BETH MACK [facility] REC#: [id number] PT STATUS: REG ER : 1975 PHYSICIAN: KASI DODGE MD ADMIT DATE: 07/01/22/ER FS Draft Date of Exam:07/01/22 CT ANGIO CHEST W EXAMINATION: CT angiography of the chest. TECHNIQUE: Contrast enhanced thin section helical images were obtained through the chest with intravenous contrast timed for the optimal opacification of the arterial structures per CTA protocol. Post-processing, reconstructions and interpretation of angiographic images of the vessels was performed. 3D MIP reconstructions were performed and reviewed. All CT scans use one or more of the following dose optimizing techniques: automated exposure control, MA and/or KvP adjustment based on a patient size and exam type, or iterative reconstruction. HISTORY: Elevated D-dimer and hemoptysis. COMPARISON: None available. FINDINGS: There is no pulmonary embolism. There is centrilobular groundglass and nodularity in both lungs with septal line thickening. No consolidation. No pleural effusion. No pneumothorax. There is no axillary or supraclavicular lymphadenopathy. There is no mediastinal lymphadenopathy. The left ventricle is enlarged. There are no coronary artery calcifications. No pericardial effusion. Aorta is normal in caliber. Limited views of the upper abdomen are unremarkable. There are no suspicious osseous lesions. IMPRESSION: 1. Centrilobular groundglass and nodularity with septal line thickening. In the setting of hemoptysis, this is favored to represent diffuse alveolar hemorrhage. The differential is pulmonary edema. Dictated on workstation # [id number] Dict: 07/01/22 0833 Trans: 07/01/22 0838 [id number] Interpreted by: BETH KRUSE MD Electronically signed by: ECG Impression ECG Comment SR with LVH A/P-Cardiology Assessment/Admission Diagnosis HTN with Uncontrolled HTN CHF, undetermined length of time Renal insufficiency - undetermined length of time - chronic vs acute d/t uncontrolled hypertension Hemoptysis of undetermined etiology - CTA of the chest on 07-01-22 showed ? aveolar hemorrhage H/O tobaccoism - quit smoking 2-3 months ago Discussion and Recomendations Uncontrolled HTN - Start Toprol XL and Norvasc for BP control - Not suitable candidate for PHYLLIS (-) or ARB d/t renal insufficiency CHF of new onset - treat with diuretics as indicated - Echocardiogram today Hempotysis with ? alveolar hemorrhage - management per eICU and medical services Acute renal insufficiency - monitor lab closely Replace electrolytes as indicated Further recs will be based on his hospital course I have discussed with Dr. Myers We would like to thank her for this consult NICOLA MCCOY Jul 01, 2022 13:16
[2022-07-01] MEDS ORDERED: doxAzosin 4 MG (CARDURA) TAB PO PRN (13:45)
[2022-07-01] MEDS: CATHETER FLUSH 10 ML SYR IV SCH ×2 (14:02→21:07)
--- NOTE | 2022-07-01 14:36 | History & Physical ---
CHRISTIJUANAIGNACIO 07/01/22 1436: History of Present Illness History of Present Illness Reason for visit/HPI Mr. Harman is a 46 y/o male with a PMHx of HTN who presented early this morning to the [place] ED with SOA and hemoptysis. Patient describes not sleeping well last night and waking up at 0430 with SOA with hemoptysis. Patient states the hemoptysis was alarming and was ultimately what caused him to present to the ED. The patient's initial BP in the ED was 238/134. The patient was transferred to [facility] and admitted to the Hospitalist service for hypertensive emergency with pulmonary edema with Cardiology management. Patient has been admitted to Cardiac Stepdown. Patient is resting in bed at time of encounter with family at bedside. Patient reports head ache and denies CP, SOA, cough, abdominal pain, or peripheral edema. Patient reports a history of HTN with noncompliance with medications. Pt states he is prescribed lisinopril 10mg PO qd and metoprolol, unknown dose. Pt states he has been noncompliant with his medications but did begin to take them regularly 3-4 days ago. Pt denies taking other medications and denies tobacco or substance use. Date of Admission Jul 01, 2022 at 11:17 Date Seen by a Provider: Jul 01, 2022 Time Seen by a Provider: 14:00 I consulted on this patient on 07/01/22 14:33 Attending Physician Gualberto Masterson MD Admitting Physician Admitting Physician: Israel Sellers MD Attending Physician: Israel Sellers MD Consult Allergies and Home Medications Allergies Coded Allergies: No Known Drug Allergies (Unverified , 07/25/20) Patient Home Medication List Home Medication List Reviewed: Yes Lisinopril (Lisinopril) 10 Mg Tablet, 10 MG PO BID, (Reported) Entered as Reported by: NICO THOMSON on 07/01/22 153 Last Action: Reviewed Metoprolol Succinate (Metoprolol Succinate) 100 Mg Tab.er.24h, 100 MG PO HS, (Reported) Entered as Reported by: NICO THOMSON on 07/01/22 153 Last Action: Reviewed Discontinued Medications Amlodipine Besylate (Amlodipine Besylate) 10 Mg Tablet, 10 MG PO DAILY Discontinued Reason: No Longer Taking Prescribed by: KAE BAKER on 07/25/201226 Last Action: Discontinued Metoprolol Succinate (Metoprolol Succinate) 100 Mg Tab.er.24h, 100 MG PO DAILY Discontinued Reason: No Longer Taking Prescribed by: KAE BAKER on 07/25/201226 Last Action: Discontinued Past Cnbbpmr-Fipeyc-Flfrxv Hx Patient Social History Tobacco Use?: No Tobacco type used: Cigarettes Smoking Status: Former Smoker Smokeless Tobacco Frequency: Former User Use of E-Cig and/or Vaping dev: No Substance use?: No Alcohol Use?: Yes Alcohol Frequency: Once in a while Pt feels they are or have been: No Seasonal Allergies Seasonal Allergies: No Current Status Advance Directives: No Communicates: Verbally Primary Language: [place] Preferred Spoken Language: [place] Is interpretation needed?: No Past Medical History Surgeries: Appendectomy Hypertension Blood Disorders: No Family Medical History Diabetes (maternal) Review of Systems Constitutional: other (fatigued) Respiratory: No cough, No short of breath Cardiovascular: No chest pain, No edema Gastrointestinal: No no symptoms reported, No abdominal pain, No nausea, No vomiting Psychiatric/Neurological: Headache Physical Exam Vital Signs Vital Signs - First Documented 07/01/22 07/01/22 06:32 09:30 Temp 36.5 Pulse 86 Resp 22 B/P (MAP) 238/134 (168) Pulse Ox 92 O2 Delivery Room Air O2 Flow Rate 2.00 Capillary Refill : Less Than 3 Seconds Height, Weight, BMI Height: '" Weight: lbs. oz. kg; 36.97 BMI Method: General Appearance: No Apparent Distress Respiratory: Lungs Clear, Normal Breath Sounds, No Accessory Muscle Use, No Respiratory Distress Cardiovascular: Regular Rate, Rhythm, No Edema Gastrointestinal: Normal Bowel Sounds, Non Tender, Soft Extremity: No Pedal Edema Neurologic/Psychiatric: Alert, Oriented x3 Skin: Normal Color, Warm/Dry Assessment/Plan Assessment and Plan Problems: (1) Acute kidney injury Status: Acute Assessment & Plan: 07/01: Acute kidney injury with BUN 22, Cr 1.83 -Renal doppler US to assess for renal artery stenosis as possible cause of elevated BUN, Cr -Monitor BUN, Cr with AM BMP -Eosinophils 0.5, acute interstitial nephritis as possible cause of ELMA -A1C to evaluated for underlying DM (2) Pulmonary edema Status: Acute Qualifiers: Qualified Codes: J81.0 - Acute pulmonary edema Assessment & Plan: 07/01: Pulmonary edema likely secondary to hypertensive emergency -CXR and CTA findings of pulmonary edema. BNP 1301 -Appreciate plan per Cardiology -Lasix 20mg IV given once in ED -Echocardiogram (3) Hypertensive emergency Status: Acute Assessment & Plan: 07/01: Hypertensive emergency, possibly secondary to medication non-compliance. Renal artery stenosis is being examined as possible cause with renal artery doppler. -Appreciate plan per Cardiology -Norvasc 10mg PO qd -Toprol 100mg PO qd, 50mg PO HS -Doxazosin for SBP >170 -Lipid panel Admission Diagnosis Admission Status: Inpatient Order (span 2 midnights) Reason for Inpatient Admission: Hypertensive emergency with pulmonary edema ISRAEL SELLERS MD 07/01/22 1644: Allergies and Home Medications Allergies Coded Allergies: No Known Drug Allergies (Unverified , 07/25/20) Patient Home Medication List Home Medication List Reviewed: Yes Lisinopril (Lisinopril) 10 Mg Tablet, 10 MG PO BID, (Reported) Entered as Reported by: NICO THOMSON on 07/01/22 1534 Last Action: Reviewed Metoprolol Succinate (Metoprolol Succinate) 100 Mg Tab.er.24h, 100 MG PO HS, (Reported) Entered as Reported by: NICO THOMSON on 07/01/22 1534 Last Action: Reviewed Discontinued Medications Amlodipine Besylate (Amlodipine Besylate) 10 Mg Tablet, 10 MG PO DAILY Discontinued Reason: No Longer Taking Prescribed by: KAE BAKER on 07/25/20 1227 Last Action: Discontinued Metoprolol Succinate (Metoprolol Succinate) 100 Mg Tab.er.24h, 100 MG PO DAILY Discontinued Reason: No Longer Taking Prescribed by: KAE BAKER on 07/25/20 122 Last Action: Discontinued Review of Systems Constitutional: malaise, other (fatigued) EENTM: no symptoms reported; No mouth pain, No nose congestion, No nose pain Respiratory: No cough; dyspnea on exertion, short of breath Cardiovascular: no symptoms reported; No chest pain, No edema Gastrointestinal: no symptoms reported; No abdominal pain, No constipation, No diarrhea, No nausea, No vomiting Genitourinary: no symptoms reported; No dysuria, No frequency, No hematuria Musculoskeletal: no symptoms reported; No back pain, No muscle pain, No neck pain Skin: no symptoms reported Psychiatric/Neurological: Headache Physical Exam General Appearance: No Apparent Distress, WD/WN Neck: Full Range of Motion, Non Tender, Supple Respiratory: Chest Non Tender, Lungs Clear, Normal Breath Sounds, No Accessory Muscle Use, No Respiratory Distress Cardiovascular: Regular Rate, Rhythm, No Edema, No Murmur Gastrointestinal: Normal Bowel Sounds, Non Tender, Soft Back: No CVA Tenderness, No Vertebral Tenderness Extremity: Normal Capillary Refill, Normal Range of Motion, No Calf Tenderness, No Pedal Edema Neurologic/Psychiatric: Alert, Oriented x3, 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 I reviewed and verified all information documented by the medical student and made modifications to such information, when appropriate. I personally performed the physical exam and medical decision making. Israel Sellers, Jul 01, 2022,16:41 Hypertensive Emergency Flash Pulmonary Edema Elevated BNP HTN - IV lasix, continue to monitor UOP, Restarted on home meds and Metoprolol added, Cardiology consulted, appreciate recommendations Acute Renal Failure - Likely 2/2 HTN ER, Renal dopplers ordered, continue to monitor UOP Elevated Glucose - A1c pending Hemoptysis - CTA with ?concerns of hemorrhage vs pulm edema will continue to monitor IGNACIO BARRAZA Jul 01, 2022 14:36 ISRAEL SELLERS MD Jul 01, 2022 16:44
[2022-07-01] MEDS ORDERED: LISI10TA25 PO (15:34)
[2022-07-01] MEDS ORDERED: MTP100TCR PO (15:34)
[2022-07-01] MEDS: ACETAMINOPHEN 500 MG TAB (TYLENOL) PO PRN ×2 (17:05→20:14)
--- NOTE | 2022-07-01 19:13 | Consultation-Cardiology ---
HPI-Cardiology Cardiology Consultation: Date of Consultation 07/01/22 Time Seen by a Provider: 18:50 Date of Admission Attending Physician Gualberto Masterson MD Admitting Physician Admitting Physician: Alecia Myers MD Attending Physician: Alecia Myers MD Consulting Physician KAYCEE SHEIKH MD, MA, FACP, FACC, [facility], CCDS HPI: Chief Complaint: Uncontrolled HTN Mr. Harman is a 46 yr old male admitted to ICU 3 from the [facility] ED with uncontrolled hypertension and hemoptysis. He denies any fever or chills. He reports he did not sleep well last night and was up frequently throughout the night. He states he noted increasing SOB around 1:00 this morning when he woke up. He reports he felt he had congestion in his lungs. He reports he began to cough and coughed up a dark red clot x1. He states he continued to cough, but noted the sputum to be frothy with pink tinge. He reports d/t continued coughing and increasing SOB he came to the ED. He reports no further hemoptysis at this time. He denies any c/o CP, palpitations, syncope or near syncope. He denies any LE swelling. He reports he takes Lisinopril and Metoprolol at home for high blood pressure. He does not monitor it at home. His PCP is Dr. Masterson. He reports fatigue at this time. Review of Systems-Cardiology Review of Systems Constitutional: No chills, No fever; malaise Eyes: No vision change Ears/Nose/Throat: No epistaxis, No recent hearing loss Respiratory: As described under HPI Cardiovascular: As described under HPI Gastrointestinal: As described under HPI Genitourinary: No dysuria, No hematuria Musculoskeletal: no symptoms reported Skin: No rash on exposed areas, No ulcerations on exposed areas Psychiatric/Neurological: No anxiety, No depression, No seizure, No focal weakness, No syncope Hematologic: No bleeding abnormalities FAP-Bhcchh-Ldlbbv Hx Patient Social History Smoking Status: Former Smoker Have you traveled recently?: Yes Alcohol Use?: Yes Pt feels they are or have been: No Tobacco type used: Cigarettes Past Medical History PMH As described under Assessment. Family Medical History Family Medical History: He denies any known family h/o CAD. Allergies and Home Medications Allergies Coded Allergies: No Known Drug Allergies (Unverified , 07/25/20) Patient Home Medication List Home Medication List Reviewed: Yes Lisinopril (Lisinopril) 10 Mg Tablet, 10 MG PO BID, (Reported) Entered as Reported by: NICO THOMSON on 07/01/221533 Last Action: Reviewed Metoprolol Succinate (Metoprolol Succinate) 100 Mg Tab.er.24h, 100 MG PO HS, (Reported) Entered as Reported by: NICO THOMSON on 07/01/221533 Last Action: Reviewed Discontinued Medications Amlodipine Besylate (Amlodipine Besylate) 10 Mg Tablet, 10 MG PO DAILY Discontinued Reason: No Longer Taking Prescribed by: KAE BAKER on 07/25/201226 Last Action: Discontinued Metoprolol Succinate (Metoprolol Succinate) 100 Mg Tab.er.24h, 100 MG PO DAILY Discontinued Reason: No Longer Taking Prescribed by: KAE BAKER on 07/25/201226 Last Action: Discontinued Physical Exam-Cardiology Physical Exam Vital Signs/I&O 07/01/22 07/01/22 07/01/22 07/01/22 09:30 09:45 11:15 11:27 Temp 36.5 Pulse 76 63 66 Resp 18 11 B/P (MAP) 161/119 181/109 (133) Pulse Ox 96 94 O2 Delivery Nasal Cannula Room Air Room Air O2 Flow Rate 2.00 07/01/22 07/01/22 07/01/22 07/01/22 11:30 11:45 12:00 12:15 Pulse 64 59 54 60 Resp 11 25 12 21 B/P (MAP) 171/102 (125) 144/85 (104) 152/92 (112) 156/93 (114) Pulse Ox 94 90 93 92 O2 Delivery Room Air Room Air Room Air Room Air 07/01/22 07/01/22 07/01/22 07/01/22 12:30 12:45 13:00 13:04 Pulse 61 67 66 67 Resp 22 26 15 B/P (MAP) 151/92 (111) 168/103 (124) 161/93 (115) Pulse Ox 91 92 94 O2 Delivery Room Air Room Air Room Air 07/01/22 07/01/22 07/01/22 07/01/22 13:15 14:00 15:41 16:00 Temp 36.4 Pulse 71 74 59 Resp 20 13 21 B/P (MAP) 169/115 (133) 178/113 (134) 167/98 (121) Pulse Ox 95 93 91 O2 Delivery Room Air Room Air Room Air 07/01/22 07/01/22 17:00 18:00 Pulse 73 71 Resp 11 27 B/P (MAP) 188/120 (142) 166/83 (110) Pulse Ox 96 94 O2 Delivery Room Air Room Air Capillary Refill : Less Than 3 Seconds Constitutional: AAO x 3, well-developed, well-nourished HEENT: PERRL, hearing is well preserved, oral hygience is good Neck: No carotid bruit; carotid pulses are 2 + bilaterally Respiratory: No accessory muscle use, No respiratory distress; chest expansion is symmetric, chest is bilaterally symmetric, other (dminished lower lobes) Cardiovascular: regular rate-rhythm; No JVD; S1 and S2 Gastrointestinal: No tender; soft, round, audible bowel sounds Extremities: no lower extremity edema bilateral Neurologic/Psychiatric: grossly intact (moves all extremities) Skin: No rash on exposed areas, No ulcerations on exposed areas Data Review Labs Laboratory Tests 07/01/22 06:40: White Blood Count 8.5, Red Blood Count 6.13H, Hemoglobin 17.6, Hematocrit 51, Mean Corpuscular Volume 83, Mean Corpuscular Hemoglobin 29, Mean Corpuscular He moglobin Concent 35, Red Cell Distribution Width 13.8, Platelet Count 228, Mean Platelet Volume 11.0, Immature Granulocyte % (Auto) 1, Neutrophils (%) (Auto) 60, Lymphocytes (%) (Auto) 24, Monocytes (%) (Auto) 7, Eosinophils (%) (Auto) 6, Basophils (%) (Auto) 1, Neutrophils # (Auto) 5.1, Lymphocytes # (Auto) 2.1, Monocytes # (Auto) 0.6, Eosinophils # (Auto) 0.5H, Basophils # (Auto) 0.1, Immature Granulocyte # (Auto) 0.0, Prothrombin Time 12.7, INR Comment 0.9, Activated Partial Thromboplast Time 30, D-Dimer 0.56H, Sodium Level 139, Potassium Level 4.2, Chloride Level 104, Carbon Dioxide Level 23, Anion Gap 12, Blood Urea Nitrogen 22H, Creatinine 1.83H, Estimat Glomerular Filtration Rate 46, BUN/Creatinine Ratio 12, Glucose Level 116H, Calcium Level 9.2, Corrected Calcium 9.0, Magnesium Level 2.0, Total Bilirubin 1.0, Aspartate Amino Transf (AST/SGOT) 22, Alanine Aminotransferase (ALT/SGPT) 21, Alkaline Phosphatase 57, Troponin I < 0.30, C-Reactive Protein 0.39, Pro-B-Type Natriuretic Peptide 1301.0H, Total Protein 7.6, Albumin 4.2 07/01/22 06:45: Influenza Type A (RT-PCR) Not Detected, Influenza Type B (RT-PCR) Not Detected, SARS-CoV-2 RNA (RT-PCR) Not Detected 07/01/22 15:02: A/P-Cardiology Assessment/Admission Diagnosis Malignant hypertension associated with CHF (probably diastolic) and renal insuff (probably acute) Hemoptysis of undetermined etiology - CTA of the chest on 07-01-22 showed ? aveolar hemorrhage (Hosp and eICU svces managing) H/O tobaccoism - quit smoking 2-3 months ago Discussion and Recomendations Uncontrolled HTN - Start Toprol XL and Norvasc for BP control - Not suitable candidate for PHYLLIS (-) or ARB d/t renal insufficiency CHF of new onset - treat with diuretics as indicated - Echocardiogram today Hempotysis with ? alveolar hemorrhage - management per eICU and medical services Acute renal insufficiency - monitor lab closely Replace electrolytes as indicated Further recs will be based on his hospital course We would like to thank Dr Myers for this consult KAYCEE SHEIKH MD FACP FAC CCDS Jul 01, 2022 19:13
[2022-07-01] MEDS: meTOproloL SUCCINATE 50 MG (TOPROL XL) TAB PO SCH (21:07)
[2022-07-02 05:23] LABS: HEMATOCRIT 47 % (40-54); HEMOGLOBIN 15.7 g/dL (13.3-17.7); MEAN CORPUSCULAR HEMOGLOBIN 28 pg (25-34); MEAN CORPUSCULAR HGB CONC 34 g/dL (32-36); MEAN CORPUSCULAR VOLUME 84 fL (80-99); MEAN PLATELET VOLUME 10.8 fL (9.0-12.2); PLATELET COUNT 194 10^3/uL (130-400); WHITE BLOOD COUNT 7.6 10^3/uL (4.3-11.0)
[2022-07-02 05:52] LABS: POTASSIUM 3.9 MMOL/L (3.6-5.0)
[2022-07-02 05:54] LABS: CALCIUM 8.9 MG/DL (8.5-10.1)
[2022-07-02 05:58] LABS: CREATININE SERUM 2.13 MG/DL (0.60-1.30)
[2022-07-02 06:01] LABS: MAGNESIUM 2.2 MG/DL (1.6-2.4)
[2022-07-02] MEDS: CATHETER FLUSH 10 ML SYR IV SCH ×3 (06:53→19:49)
[2022-07-02] MEDS: amLODIPine 10 MG (NORVASC) TAB PO SCH (08:13)
[2022-07-02] MEDS: meTOprolol SUCCINATE 100 MG (TOPROL XL) TAB PO SCH (08:14)
--- NOTE | 2022-07-02 09:30 | Progress Note - Cardiology ---
Cardiology SOAP Progress Note Subjective: Sitting up in bed No c/o CP No c/o hemoptysis or SOB No c/o nause Objective: I&O/Vital Signs 07/02/22 07/02/22 07/02/22 07/02/22 07:00 08:00 08:00 12:00 Temp 36.5 37.0 Pulse 52 55 Resp 16 B/P (MAP) 156/95 (115) Pulse Ox 95 O2 Delivery Room Air Room Air 07/02/22 12:06 Pulse 62 Resp 11 B/P (MAP) 132/81 (98) Pulse Ox 92 O2 Delivery Room Air 07/02/22 00:00 Intake Total 315 ml Output Total 1025 ml Balance -710 ml Constitutional: AAO x 3, well-developed, well-nourished Respiratory: No accessory muscle use, No respiratory distress; chest expansion is symmetric, chest is bilaterally symmetric, other (dminished lower lobes) Cardiovascular: regular rate-rhythm; No JVD; S1 and S2 Gastrointestional: No tender; soft, round, audible bowel sounds Extremities: no lower extremity edema bilateral Neurologic/Psychiatric: grossly intact (moves all extremities) Skin: No rash on exposed areas, No ulcerations on exposed areas Results/Procedures: Labs Laboratory Tests 07/02/22 05:14: White Blood Count 7.6, Red Blood Count 5.55H, Hemoglobin 15.7, Hematocrit 47, Mean Corpuscular Volume 84, Mean Corpuscular Hemoglobin 28, Mean Corpuscular Hemoglobin Concent 34, Red Cell Distribution Width 13.5, Platelet Count 194, Mean Platelet Volume 10.8, Sodium Level 139, Potassium Level 3.9, Chloride Level 106, Carbon Dioxide Level 20L, Anion Gap 13, Blood Urea Nitrogen 29H, Creatinine 2.13H, Estimat Glomerular Filtration Rate 38, BUN/Creatinine Ratio 14, Glucose Level 99, Calcium Level 8.9, Magnesium Level 2.2, Triglycerides Level 106, Cholesterol Level 213H, LDL Cholesterol Direct 149H, VLDL Cholesterol 21, HDL Cholesterol 49 Microbiology 07/01/22 Gram Stain - Final, Resulted 07/01/22 Sputum Culture - Preliminary, Resulted Usual upper respiratory anna A/P: Assessment: Malignant hypertension associated with CHF (probably diastolic) and renal insuff (probably acute) Hemoptysis of undetermined etiology - CTA of the chest on 07-01-22 showed ? aveolar hemorrhage (Hosp and eICU svces managing) H/O tobaccoism - quit smoking 2-3 months ago Plan: HTN - improved with addition of Norvasc and BB tx - unable to titrate BB dose any further d/t episodes of bradycardia (albeit asymptomatic and seen during sleep) - add Cardura - Not suitable candidate for PHYLLIS (-) or ARB d/t renal insufficiency CHF of new onset - treat with diuretics as indicated - Echocardiogram today Hempotysis with ? alveolar hemorrhage - no further episodes of hemoptysis - management per eICU and medical services Acute renal insufficiency - Cr worse today Replace electrolytes as indicated NICOLA MCCOY Jul 02, 2022 09:30
[2022-07-02] MEDS ORDERED: doxAzosin 2 MG (CARDURA) TAB PO NR (10:00)
--- NOTE | 2022-07-02 12:26 | Diagnostic Imaging Report ---
History: Hypertension emergency COMPARISON: None TECHNIQUE: Mcleod scale, color Doppler and spectral Doppler ultrasound performed the kidneys and renal arteries. FINDINGS: The right kidney measures 9.1 cm in length. There is no hydronephrosis. No masses or shadowing stones are seen. The left kidney measures 10.8 cm in length. There is no hydronephrosis or large masses seen. This partially obscured by bowel gas. The aorta measures 115 cm/s. The right renal artery velocities range between 28 and 45 cm/s. The left renal artery ranges between 27 and 88 cm/s. Renal artery aorta ratios measures 0.4 on the right and 0.8 on the left. Right resistive indices measure 0.28-0.31, and on the left measures 0.41-0.67. IMPRESSION: 1. No evidence of renal artery stenosis. 2. No acute renal abnormality. Dictated by: Dictated on workstation # [id number]
--- NOTE | 2022-07-02 13:23 | Progress Note ---
BARRAZAJUANA HERRMANNAELA 07/02/22 1323: Subjective Date Seen by a Provider: Jul 02, 2022 Time Seen by a Provider: 10:00 Subjective/Events-last exam Mr. Mack is a 46 y/o male with a PMHx of HTN who presented early in the morning on 07/01 to the [facility] ED with SOA and hemoptysis. Patient described not sleeping well that night and waking up at 0430 with SOA with hemoptysis. Patient states the hemoptysis was alarming and was ultimately what caused him to present to the ED. The patient's initial BP in the ED was 238/134. The patient was transferred to [facility] and admitted to the Hospitalist service for hypertensive emergency with pulmonary edema with Cardiology management. The patient is resting in bed at time of encounter. Patient reports his head ache has resolved. Patient denies CP, SOA, abdominal pain, N/V/D. Patient reports feeling very tired as he did not sleep well last night. The patient's BP has continued to decline to a well-controlled level. Patient will be transferred to Med-Surg floor this afternoon for continued monitoring of his renal function and BP. Review of Systems HEENT: No Head Aches Pulmonary: No Dyspnea, No Cough Cardiovascular: No: Chest Pain, Edema Gastrointestinal: No: Nausea, Vomiting, Abdominal Pain Objective Exam Last Set of Vital Signs Vital Signs Date Time Temp Pulse Resp B/P (MAP) Pulse Ox O2 Delivery O2 Flow Rate FiO2 07/02/22 12:06 62 11 132/81 (98) 92 Room Air 07/02/22 12:00 37.0 07/01/22 09:30 2.00 Capillary Refill : Less Than 3 Seconds I&O Intake and Output 07/02/22 00:00 Intake Total 815 ml Output Total 1025 ml Balance -210 ml Intake Oral 315 ml IV Total 500 ml IV Contrast 0 ml Output Urine Total 1025 ml Daily Weight Change No General: Alert, Cooperative, No Acute Distress HEENT: Atraumatic Lungs: Other (rhonchi of R upper lung thompson, likely secondary to pulmonary edema) Heart: Regular Rate, No Murmurs Abdomen: Normal Bowel Sounds, Soft Extremities: No Edema Neuro: Normal Speech Psych/Mental Status: Mental Status NL, Mood NL Results Lab Laboratory Tests 07/01/22 15:02: Mean Blood Glucose 100, Hemoglobin A1c 5.1 1/19/23 05:14: White Blood Count 7.6, Red Blood Count 5.55H, Hemoglobin 15.7, Hematocrit 47, Mean Corpuscular Volume 84, Mean Corpuscular Hemoglobin 28, Mean Corpuscular Hemoglobin Concent 34, Red Cell Distribution Width 13.5, Platelet Count 194, Mean Platelet Volume 10.8, Sodium Level 139, Potassium Level 3.9, Chloride Level 106, Carbon Dioxide Level 20L, Anion Gap 13, Blood Urea Nitrogen 29H, Creatinine 2.13H, Estimat Glomerular Filtration Rate 38, BUN/Creatinine Ratio 14, Glucose Level 99, Calcium Level 8.9, Magnesium Level 2.2, Triglycerides Level 106, Jane sterol Level 213H, LDL Cholesterol Direct 149H, VLDL Cholesterol 21, HDL Cholesterol 49 Microbiology 07/01/22 Gram Stain - Final, Resulted 07/01/22 Sputum Culture, Resulted Pending Radiology NAME: BETH MACK [facility] REC#: [id number] PT STATUS: ADM Joann : 1975 PHYSICIAN: ISRAEL SELLERS MD ADMIT DATE: 07/01/22/ICU Draft Date of Exam:07/02/22 US RENAL ART DOPPLER TIMO COMP History: Hypertension emergency COMPARISON: None TECHNIQUE: Mcleod scale, color Doppler and spectral Doppler ultrasound performed the kidneys and renal arteries. FINDINGS: The right kidney measures 9.1 cm in length. There is no hydronephrosis. No masses or shadowing stones are seen. The left kidney measures 10.8 cm in length. There is no hydronephrosis or large masses seen. This partially obscured by bowel gas. The aorta measures 115 cm/s. The right renal artery velocities range between 28 and 45 cm/s. The left renal artery ranges between 27 and 88 cm/s. Renal artery aorta ratios measures 0.4 on the right and 0.8 on the left. Right resistive indices measure 0.28-0.31, and on the left measures 0.41-0.67. IMPRESSION: 1. No evidence of renal artery stenosis. 2. No acute renal abnormality. Dictated on workstation # [id number] Dict: 07/02/22 1206 Trans: 07/02/22 1225 AMINA [id number] Interpreted by: RUBY DELGADO MD Electronically signed by: Procedures Procedures Echocardiogram 07/02: -LV: estimated ejection fraction 50% -mild aortic regurgitation Assessment/Plan Assessment/Plan Assess & Plan/Chief Complaint Hypertensive emergency with flash pulmonary edema. Refer to problem list for complete assessment and plan. Diagnosis/Problems Diagnosis/Problems (1) Acute kidney injury Status: Acute Assessment & Plan: 07/01: Acute kidney injury with BUN 22, Cr 1.83 -Renal doppler US to assess for renal artery stenosis as possible cause of elevated BUN, Cr -Monitor BUN, Cr with AM BMP -Eosinophils 0.5, acute interstitial nephritis as possible cause of ELMA -A1C to evaluated for underlying DM 07/02: -Renal doppler indicated no renal artery stenosis or renal abnormality. ELMA likely secondary to HTN. Continue to monitor BUN, Cr with AM CMP. Encouraged patient to increase PO hydration today -BUN 29, Cr 2.13 -If renal function improves on 07/03, consider discharge if BP is stable (2) Pulmonary edema Status: Acute Assessment & Plan: 07/01: Pulmonary edema likely secondary to hypertensive emergency -CXR and CTA findings of pulmonary edema. BNP 1301 -Appreciate plan per Cardiology -Lasix 20mg IV given once in ED -Echocardiogram 07/02: -Echo completed; indicated EF of 50% and mild aortic regurgitation -Appreciate plan per Cardiology Qualifiers: Qualified Codes: J81.0 - Acute pulmonary edema (3) Hypertensive emergency Status: Acute Assessment & Plan: 07/01: Hypertensive emergency, possibly secondary to medication non-compliance. Renal artery stenosis is being examined as possible cause with renal artery doppler. -Appreciate plan per Cardiology -Norvasc 10mg PO qd -Toprol 100mg PO qd, 50mg PO HS -Doxazosin 2mg PO BID -Lipid panel 07/02: -BP is currently well-controlled, continue medication management. -Begin high-intensity statin, atorvastatin 40mg PO qd for hyperlipidemia -Begin ASA 81 mg PO qd (4) Hyperlipidemia Assessment & Plan: 07/02: -Lipid panel: TG 106, Total cholesterol 213, LDL 149, HDL 49 -High intensity statin recommended at this time to manage mixed hyperlipidemia. -Begin atorvastatin 40mg PO qd and ASA 81mg PO qd Qualifiers: Qualified Codes: E78.2 - Mixed hyperlipidemia ISRAEL SELLERS MD 07/02/22 1648: Objective Exam General: Alert, Oriented X3, Cooperative, No Acute Distress Lungs: Clear to Auscultation, Normal Air Movement Heart: Regular Rate, No Murmurs Abdomen: Normal Bowel Sounds, Soft, No Tenderness Extremities: No Edema, No Tenderness/Swelling Neuro: Normal Speech Psych/Mental Status: Mental Status NL, Mood NL Supervisory-Addendum Brief Verification & Attestation Participated in pt care: history, physical Personally performed: exam, history Care discussed with: Medical Student Procedures: n/a Verification and Attestation of Medical Student E/M Service A medical student performed and documented this service in my presence. I reviewed and verified all information documented by the medical student and made modifications to such information, when appropriate. I personally performed the physical exam and medical decision making. Israel Sellers, Jul 02, 2022,16:48 IGNACIO BARRAZA Jul 02, 2022 13:23 ISRAEL SELLERS MD Jul 02, 2022 16:48
--- NOTE | 2022-07-02 13:37 | Progress Note - Cardiology ---
Cardiology SOAP Progress Note Subjective: Gen malaise and weakness Shortness of breath resolved No cp or palp or syncope No focal weakness Objective: I&O/Vital Signs 07/02/22 07/02/22 07/02/22 07/02/22 02:00 02:00 04:00 04:11 Temp 36.4 Pulse 54 54 48 Resp 14 14 14 B/P (MAP) 141/89 (106) 141/89 (106) 151/90 (110) Pulse Ox 91 91 92 O2 Delivery Room Air 07/02/22 07/02/22 07/02/22 07/02/22 07:00 08:00 08:00 12:00 Temp 36.5 37.0 Pulse 52 55 Resp 16 B/P (MAP) 156/95 (115) Pulse Ox 95 O2 Delivery Room Air Room Air 07/02/22 12:06 Pulse 62 Resp 11 B/P (MAP) 132/81 (98) Pulse Ox 92 O2 Delivery Room Air 07/02/22 00:00 Intake Total 315 ml Output Total 1025 ml Balance -710 ml Constitutional: AAO x 3, well-developed, well-nourished Respiratory: No accessory muscle use, No respiratory distress; chest expansion is symmetric, chest is bilaterally symmetric, other (dminished lower lobes) Cardiovascular: regular rate-rhythm; No JVD; S1 and S2 Gastrointestional: No tender; soft, round, audible bowel sounds Extremities: no lower extremity edema bilateral Neurologic/Psychiatric: grossly intact (moves all extremities) Skin: No rash on exposed areas, No ulcerations on exposed areas Results/Procedures: Labs Laboratory Tests 07/01/22 15:02: Mean Blood Glucose 100, Hemoglobin A1c 5.1 07/02/22 05:14: White Blood Count 7.6, Red Blood Count 5.55H, Hemoglobin 15.7, Hematocrit 47, Mean Corpuscular Volume 84, Mean Corpuscular Hemoglobin 28, Mean Corpuscular Hemoglobin Concent 34, Red Cell Distribution Width 13.5, Platelet Count 194, Mean Platelet Volume 10.8, Sodium Level 139, Potassium Level 3.9, Chloride Level 106, Carbon Dioxide Level 20L, Anion Gap 13, Blood Urea Nitrogen 29H, Creatinine 2.13H, Estimat Glomerular Filtration Rate 38, BUN/Creatinine Ratio 14, Glucose Level 99, Calcium Level 8.9, Magnesium Level 2.2, Triglycerides Level 106, Cholesterol Level 213H, LDL Cholesterol Direct 149H, VLDL Cholesterol 21, HDL Cholesterol 49 Microbiology 07/01/22 Gram Stain - Final, Resulted 07/01/22 Sputum Culture, Resulted Pending A/P: Assessment: Malignant hypertension associated with acute diastolic CHF and acute renal failure - Echo of 07/01/22: mild conc LVH, LVEF 50%, mild AI Hemoptysis of undetermined etiology - CTA of the chest on 07-01-22 showed ? aveolar hemorrhage (Hosp and eICU svces managing) H/O tobaccoism - quit smoking 2-3 months ago Plan: HTN - improved with addition of Norvasc and BB tx - unable to titrate BB dose any further d/t episodes of bradycardia (albeit asymptomatic and seen during sleep) - add Cardura - Not suitable candidate for PHYLLIS (-) or ARB d/t renal insufficiency CHF of new onset - treat with diuretics as indicated. No diuretics at this time because CHF is compensated and labs are showing acute renal failure - Echocardiogram today Hempotysis with ? alveolar hemorrhage - no further episodes of hemoptysis - management per eICU and medical services KAYCEE SHEIKH MD FACP FACC CCDS Jul 02, 2022 13:37
[2022-07-02 19:35] VITALS: BP 143/88
[2022-07-02] MEDS: doxAzosin 2 MG (CARDURA) TAB PO SCH (19:48)
[2022-07-02] MEDS: meTOproloL SUCCINATE 50 MG (TOPROL XL) TAB PO SCH (19:48)
[2022-07-02 23:43] VITALS: BP 116/75
[2022-07-03 03:34] VITALS: BP 125/71
[2022-07-03] MEDS: CATHETER FLUSH 10 ML SYR IV SCH (05:50)
[2022-07-03 06:00] LABS: BASOPHILS # (AUTO) 0.1 10^3/uL (0.0-0.1); BASOPHILS % (AUTO) 1 % (0-10); EOSINOPHILS # (AUTO) 0.3 10^3/uL (0.0-0.3); EOSINOPHILS % (AUTO) 4 % (0-10); HEMATOCRIT 48 % (40-54); HEMOGLOBIN 16.4 g/dL (13.3-17.7); LYMPHOCYTES # (AUTO) 1.5 10^3/uL (1.0-4.0); LYMPHOCYTES % (AUTO) 23 % (12-44); MEAN CORPUSCULAR HEMOGLOBIN 29 pg (25-34); MEAN CORPUSCULAR HGB CONC 34 g/dL (32-36); MEAN CORPUSCULAR VOLUME 85 fL (80-99); MEAN PLATELET VOLUME 10.7 fL (9.0-12.2); MONOCYTES # (AUTO) 0.6 10^3/uL (0.0-1.0); MONOCYTES % (AUTO) 9 % (0-12); NEUTROPHILS # (AUTO) 4.2 10^3/uL (1.8-7.8); NEUTROPHILS % (AUTO) 64 % (42-75); PLATELET COUNT 192 10^3/uL (130-400); WHITE BLOOD COUNT 6.6 10^3/uL (4.3-11.0)
[2022-07-03 06:21] LABS: ALBUMIN 3.9 GM/DL (3.2-4.5); BILIRUBIN,TOTAL 1.1 MG/DL (0.1-1.0); CALCIUM 8.9 MG/DL (8.5-10.1); CREATININE SERUM 2.06 MG/DL (0.60-1.30); POTASSIUM 4.1 MMOL/L (3.6-5.0); TOTAL PROTEIN 7.2 GM/DL (6.4-8.2)
[2022-07-03 07:30] VITALS: BP 173/94
[2022-07-03] MEDS: meTOprolol SUCCINATE 100 MG (TOPROL XL) TAB PO SCH (08:09)
[2022-07-03] MEDS: doxAzosin 2 MG (CARDURA) TAB PO SCH (08:09)
[2022-07-03] MEDS: amLODIPine 10 MG (NORVASC) TAB PO SCH (08:09)
[2022-07-03] MEDS ORDERED: ATOR40TA70 PO (10:26)
[2022-07-03] MEDS ORDERED: MTP100TCR PO (10:26)
[2022-07-03] MEDS ORDERED: METO50TA7 PO (10:26)
[2022-07-03] MEDS ORDERED: DOXA2TAB2 PO (10:26)
[2022-07-03] MEDS ORDERED: AMLO-251 PO (10:26)
--- NOTE | 2022-07-03 10:27 | Discharge Summary ---
Discharge [facility] Reconcile Patient Problems Problems Reviewed?: Yes Discharge Medications New, Converted or Re-Newed RX: Transmitted to Pharmacy New Medications: Atorvastatin Calcium (Atorvastatin Calcium) 40 Mg Tablet 40 MG PO HS, #30 TAB Amlodipine Besylate (Amlodipine Besylate) 10 Mg Tablet 10 MG PO DAILY, #30 TAB Doxazosin Mesylate (Doxazosin Mesylate) 2 Mg Tablet 2 MG PO BID, #60 TAB Metoprolol Succinate (Metoprolol Succinate) 100 Mg Tab.er.24h 100 MG PO DAILY, #30 TAB Metoprolol Succinate (Metoprolol Succinate) 50 Mg Tab.er.24h 50 MG PO HS, #30 TAB Discontinued Medications: Lisinopril (Lisinopril) 10 Mg Tablet 10 MG PO BID, TAB Metoprolol Succinate (Metoprolol Succinate) 100 Mg Tab.er.24h 100 MG PO HS, TAB LAST FILLED 02-20-2022 #30/30 DAY SUPPLY Patient Instructions Goal/Follow Up Appt: [address] Masterson Patient Instructions: - You will need to get your renal function labs done next week - Focus on low salt diet Activity & Diet Discharge Diet: Low Sodium Diet, Cardiac Diet Activity as Tolerated: Yes Copy Copies To 1: SELF,LETTY SELLERS,ISRAEL Lan MD Jul 03, 2022 10:27
[2022-07-03 11:29] VITALS: BP 143/91
--- NOTE | 2022-07-03 11:53 | Discharge Summary ---
Discharge Summary Hospital Course Was the Problem List Reviewed?: Yes Problems/Dx: (1) Acute kidney injury Status: Acute Assessment & Plan: Follow-up with PCP for out-patient monitoring. Counseled patient regarding the importance of maintaining controlled BP and glycemic control for renal protection. Patient is stable for discharge at this time. Continue PO hydration for renal support. (2) Pulmonary edema Status: Acute Assessment & Plan: Patient is stable for discharge at this time. Follow-up with PCP for out-patient management Qualifiers: Qualified Codes: J81.0 - Acute pulmonary edema (3) Hypertensive emergency Status: Acute Assessment & Plan: Continue anti-hypertensive therapy, avoiding nephro-toxic medications. Follow-up with PCP for out-patient management. Patient is stable for DC at this time. (4) Hyperlipidemia Assessment & Plan: Initiate high-intensity statin and ASA therapy. Follow-up with PCP for out-patient management. Qualifiers: Qualified Codes: E78.2 - Mixed hyperlipidemia Hospital Course Date of Admission: Jul 01, 2022 at 11:17 Admission Diagnosis : Family Physician/Provider: Gualberto Masterson MD Date of Discharge: 07/03/22 Discharge Diagnosis: [1. Hypertensive emergency with flash pulmonary edema 2. Acute kidney injury 3. Hyperlipidemia] Hospital Course: [Mr. Harman is a 46 y/o male with a PMHx of HTN who presented early in the morning on 07/01 to the [place] ED with SOA and hemoptysis. Patient described not sleeping well that night and waking up at 0430 with SOA with hemoptysis. The patient's initial BP in the ED was 238/134. The patient was transferred to [facility] and admitted to the Hospitalist service for hypertensive emergency with pulmonary edema with Cardiology management. Anti-hypertensive therapy was initiated. The patient's renal function was closely monitored and began to trend down on 07/03. Lipid panel demonstrated hyperlipidemia requiring high-intensity statin therapy. The patient's BP is now well-controlled, and the patient is st able for discharge on 07/03. Discharge instructions have been provided per Dr. Myers. This is a brief summary of the patient's hospital course.] Labs and Pending Lab Test: Laboratory Tests 07/03/22 05:45: White Blood Count 6.6, Red Blood Count 5.67H, Hemoglobin 16.4, Hematocrit 48, Mean Corpuscular Volume 85, Mean Corpuscular Hemoglobin 29, Mean Corpuscular Hemoglobin Concent 34, Red Cell Distribution Width 13.3, Platelet Count 192, Mean Platelet Volume 10.7, Immature Granulocyte % (Auto) 0, Neutrophils (%) (Auto) 64, Lymphocytes (%) (Auto) 23, Monocytes (%) (Auto) 9, Eosinophils (%) (Auto) 4, Basophils (%) (Auto) 1, Neutrophils # (Auto) 4.2, Lymphocytes # (Auto) 1.5, Monocytes # (Auto) 0.6, Eosinophils # (Auto) 0.3, Basophils # (Auto) 0.1, Immature Granulocyte # (Auto) 0.0, Sodium Level 138, Potassium Level 4.1, C hloride Level 107, Carbon Dioxide Level 22, Anion Gap 9, Blood Urea Nitrogen 35H , Creatinine 2.06H, Estimat Glomerular Filtration Rate 39, BUN/Creatinine Ratio 17, Glucose Level 95, Calcium Level 8.9, Corrected Calcium 9.0, Total Bilirubin 1.1H, Aspartate Amino Transf (AST/SGOT) 20, Alanine Aminotransferase (ALT/SGPT) 23, Alkaline Phosphatase 42, Total Protein 7.2, Albumin 3.9 Microbiology 07/01/22 Gram Stain - Final, Resulted 07/01/22 Sputum Culture - Preliminary, Resulted Usual upper respiratory anna Home Meds Active Atorvastatin Calcium 40 Mg Tablet 40 Mg PO HS Amlodipine Besylate 10 Mg Tablet 10 Mg PO DAILY Metoprolol Succinate 50 Mg Tab.er.24h 50 Mg PO HS Metoprolol Succinate 100 Mg Tab.er.24h 100 Mg PO DAILY Doxazosin Mesylate 2 Mg Tablet 2 Mg PO BID Assessment/Pt Instructions 1. Hypertensive emergency with flash pulmonary edema -Contine anti-hypertensive therapy -F/u with PCP 2. ELMA -F/u with PCP -Continue PO hydration and anti-hypertensive therapy 3. Hyperlipidemia -F/u with PCP for out-patient management Discharge Instructions Discharge Diet: Low Sodium Diet, Cardiac Diet Activity as Tolerated: Yes Discharge Physical Examination Vital Signs Vital Signs Date Time Temp Pulse Resp B/P (MAP) Pulse Ox O2 Delivery O2 Flow Rate FiO2 07/03/22 08:15 Room Air 07/03/22 07:30 36.4 58 18 173/94 (120) 97 07/01/22 09:30 2.00 General Appearance: No Apparent Distress, WD/WN Respiratory: Lungs Clear, Normal Breath Sounds, No Accessory Muscle Use, No Re spiratory Distress Cardiovascular: Regular Rate, Rhythm, No Murmur Gastrointestinal: Normal Bowel Sounds, Non Tender, Soft Skin: Normal Color, Warm/Dry Neurologic/Psychiatric: Alert, Oriented x3, Normal Mood/Affect Allergies: Coded Allergies: No Known Drug Allergies (Unverified , 07/25/20) Discharge Summary Date of Admission Jul 01, 2022 at 11:17 Date of Discharge Discharge Date: Jul 03, 2022 Discharge Time: 11:00 Discharge Diagnosis (1) Acute kidney injury Status: Acute Assessment & Plan: 07/01: Acute kidney injury with BUN 22, Cr 1.83 -Renal doppler US to assess for renal artery stenosis as possible cause of elevated BUN, Cr -Monitor BUN, Cr with AM BMP -Eosinophils 0.5, acute interstitial nephritis as possible cause of ELMA -A1C to evaluated for underlying DM 07/02: -Renal doppler indicated no renal artery stenosis or renal abnormality. ELMA li aleida secondary to HTN. Continue to monitor BUN, Cr with AM CMP. Encouraged patient to increase PO hydration today -BUN 29, Cr 2.13 -If renal function improves on 07/03, consider discharge if BP is stable 07/03: BUN 35, Cr. 2.06. Patient is stable for discharge, follow-up with PCP for monitoring of kidney function. Counseled patient on importance of controlling blood pressure and maintaining glycemic control for renal protection. (2) Pulmonary edema Status: Acute Assessment & Plan: 07/01: Pulmonary edema likely secondary to hypertensive emergency -CXR and CTA findings of pulmonary edema. BNP 1301 -Appreciate plan per Cardiology -Lasix 20mg IV given once in ED -Echocardiogram 07/02: -Echo completed; indicated EF of 50% and mild aortic regurgitation -Appreciate plan per Cardiology 07/03: Follow-up with PCP. Pulmonary and cardiovascular physical exam unremarkable today Qualifiers: Qualified Codes: J81.0 - Acute pulmonary edema (3) Hypertensive emergency Status: Acute Assessment & Plan: 07/01: Hypertensive emergency, possibly secondary to medication non-compliance. Renal artery stenosis is being examined as possible cause with renal artery doppler. -Appreciate plan per Cardiology -Norvasc 10mg PO qd -Toprol 100mg PO qd, 50mg PO HS -Doxazosin 2mg PO BID -Lipid panel 07/02: -BP is currently well-controlled, continue medication management. -Begin high-intensity statin, atorvastatin 40mg PO qd for hyperlipidemia -Begin ASA 81 mg PO qd 07/03: BP is well-controlled. Follow-up with PCP for management (4) Hyperlipidemia Assessment & Plan: 07/02: -Lipid panel: TG 106, Total cholesterol 213, LDL 149, HDL 49 -High intensity statin recommended at this time to manage mixed hyperlipidemia. -Begin atorvastatin 40mg PO qd and ASA 81mg PO qd 07/03: Follow-up with PCP for out-patient management Qualifiers: Qualified Codes: E78.2 - Mixed hyperlipidemia IGNACIO BARRAZA Jul 03, 2022 11:32
--- NOTE | 2022-07-03 12:06 | Progress Note - Cardiology ---
Cardiology SOAP Progress Note Subjective: No cp or palp or syncope or shortness of breath or swelling No n/v/d No focal weakness No hemoptysis Objective: I&O/Vital Signs 07/03/22 07/03/22 07/03/22 07/03/22 03:34 07:30 08:15 11:29 Temp 36.4 36.4 36.5 Pulse 61 58 61 Resp 16 18 18 B/P (MAP) 125/71 (89) 173/94 (120) 143/91 (108) Pulse Ox 97 97 95 O2 Delivery Room Air Room Air Room Air Room Air 07/03/22 00:00 Intake Total 700 ml Output Total 500 ml Balance 200 ml Constitutional: AAO x 3, well-developed, well-nourished Respiratory: No accessory muscle use, No respiratory distress; chest expansion is symmetric, chest is bilaterally symmetric, other (dminished lower lobes) Cardiovascular: regular rate-rhythm; No JVD; S1 and S2 Gastrointestional: No tender; soft, round, audible bowel sounds Extremities: no lower extremity edema bilateral Neurologic/Psychiatric: grossly intact (moves all extremities) Skin: No rash on exposed areas, No ulcerations on exposed areas Results/Procedures: Labs Laboratory Tests 07/03/22 05:45: White Blood Count 6.6, Red Blood Count 5.67H, Hemoglobin 16.4, Hematocrit 48, Mean Corpuscular Volume 85, Mean Corpuscular Hemoglobin 29, Mean Corpuscular Hemoglobin Concent 34, Red Cell Distribution Width 13.3, Platelet Count 192, Mean Platelet Volume 10.7, Immature Granulocyte % (Auto) 0, Neutrophils (%) (Auto) 64, Lymphocytes (%) (Auto) 23, Monocytes (%) (Auto) 9, Eosinophils (%) (Auto) 4, Basophils (%) (Auto) 1, Neutrophils # (Auto) 4.2, Lymphocytes # (Auto) 1.5, Monocytes # (Auto) 0.6, Eosinophils # (Auto) 0.3, Basophils # (Auto) 0.1, Immature Granulocyte # (Auto) 0.0, Sodium Level 138, Potassium Level 4.1, Chloride Level 107, Carbon Dioxide Level 22, Anion Gap 9, Blood Urea Nitrogen 35H, Creatinine 2.06H, Estimat Glomerular Filtration Rate 39, BUN/Creatinine Ratio 17, Glucose Level 95, Calcium Level 8.9, Corrected Calcium 9.0, Total Bilirubin 1.1H, Aspartate Amino Transf (AST/SGOT) 20, Alanine Aminotransferase (ALT/SGPT) 23, Alkaline Phosphatase 42, Total Protein 7.2, Albumin 3.9 Microbiology 07/01/22 Gram Stain - Final, Resulted 07/01/22 Sputum Culture - Preliminary, Resulted Usual upper respiratory anna Laboratory Tests 07/02/22 05:14 07/03/22 05:45 A/P: Assessment: Malignant hypertension associated with acute diastolic CHF and acute renal failure - Echo of 07/01/22: mild conc LVH, LVEF 50%, mild AI Hemoptysis of undetermined etiology - CTA of the chest on 07-01-22 showed ? aveolar hemorrhage (Hosp and eICU svces managing) H/O tobaccoism - quit smoking 2-3 months ago Plan: * Continue current regimen for bp * Management of hemoptysis, pulm issues, renal issues is with the Med svce * Advised outpt cardiac f/u * I spoke with him and answered CV-related questions KAYCEE SHEIKH MD FACP FAC CCDS Jul 03, 2022 12:06
== END 2022-07-03 13:15 | disposition home or self-care (01) ==
LOC: EDUNIT# 06:32 → ER FS 06:33 → ICU 11:17 → INTOOBSV 11:17 → 4TH 07-02 15:03
PROVIDERS: ADMIT Family Medicine; ATTEND Family Medicine
DX: I16.1 Hypertensive emergency (principal); J81.0 Acute pulmonary edema; N17.9 Acute kidney failure, unspecified; E78.5 Hyperlipidemia, unspecified; I11.0 Hypertensive heart disease with heart failure; I50.31 Acute diastolic (congestive) heart failure; Z87.891 Personal history of nicotine dependence
CPT/HCPCS: 36415; 71045; 71275; 76770; 80048; 80053 ×2; 80061; 83036; 83735 ×2; 83880; 84484; 85025 ×2; 85027; 85379; 85610; 85730; 86141; 87070; 87205; 87636; 93005; 93041; 93975; 99284; C8929; G0378 ×2; 93306